=== PATIENT | female | born 1990 | race Caucasian/White ===

== ENCOUNTER 2016-03-24 18:18 | Emergency (ER) | END 2016-03-24 21:52 | disposition home or self-care (01) | DX: O23.11 Infections of bladder in pregnancy, first trimester (principal); G43.909 Migraine, unspecified, not intractable, without status migrainosus; O26.891 Other specified pregnancy related conditions, first trimester; R10.2 Pelvic and perineal pain; Z3A.13 13 weeks gestation of pregnancy | CPT/HCPCS: 36415; 76801; 81001; 84702; 85025; 86900; 86901; 96374; J2765; J7030; Z7502; Z7610 ==

== ENCOUNTER 2016-05-23 20:35 | Outpatient (CLI) | payer MEDICAID ==
[~2016-05-23] VITALS: Ht 160 cm; Wt 103.1 kg
[~2016-05-23 20:35] MED LIST: CEPH-443 PO; NO MEDS
[2016-05-23 21:08] VITALS: BP 125/63; PULSE 80; RESP 18
[2016-05-23] MEDS ORDERED: PRENAT PO (21:13)
[2016-05-23] MEDS ORDERED: ACETAMINOPHEN 500 MG TAB PO STA (21:18)
[2016-05-23 21:50] LABS: ADD UMIC YES; URINE BILIRUBIN (Dip) NEGATIVE (NEGATIVE); URINE BLOOD (Dip) NEGATIVE (NEGATIVE); URINE COLOR LT. YELLOW (YELLOW); URINE GLUCOSE (Dip) NEGATIVE (NEGATIVE); URINE KETONES (Dip) NEGATIVE (NEGATIVE); URINE LEUKOCYTE ESTERASE (Dip) 3+ (NEGATIVE); URINE NITRITE (Dip) NEGATIVE (NEGATIVE); URINE TOTAL PROTEIN (Dip) NEGATIVE (NEGATIVE); URINE UROBILINOGEN (Dip) 0.2 E.U./dL (0.1-1.0)
[2016-05-23 22:13] LABS: BACTERIA,URINE FEW; URINE RBCS 0-2 /HPF ([, 0])
[2016-05-23 22:14] LABS: SQUAMOUS EPITHELIAL CELL,UR MANY
--- NOTE | 2016-05-23 22:58 | TRIAGE ---
OB Triage Datetime Report Generated by CPN: 05/23/2016 22:58 Datetime: 05/23/2016 21:17 Monitor Mode: External Pattern: Normal: <= 5 Contractions in 10 Minutes Resting Tone [place]: Relaxed Heart Rate FHR Baseline Rate: 140 Monitor Mode: External US FHR Baseline Changes: No Baseline Change Category: Category I Comments: appropriate for gest age Datetime: 05/23/2016 21:02 Arrived By: Wheelchair Arrived From: Home Chief Complaint: hx c/s x1 w/ c/o upper rt back pain since am. Denies hx problems this pregna ncy. Movement: Present Contractions: Denies/Absent Rupture of Membranes: Denies Vaginal Bleeding: None Vaginal Discharge: Denies Recent Sexual Intercouse: Denies Abdominal Trauma: Not Applicable Patient Complaints: Back Pain Time Provider Notified: 05/23/2016 21:17 Provider Notified: Dr Sanders Initial Plan: EFM, CALL MD Vaginal Exam Membrane Status: Intact Datetime: 05/23/2016 20:49 Maternal Assessment Level of Consciousness: Fully Conscious Headache: Denies Blurred Vision: No Nausea/Vomiting: Denies RUQ Epigastric Pain: Denies Facial Edema: None Labor Evaluation Frequency: placed Monitor Mode: External Resting Tone [place]: Relaxed Monitor Mode: External US Comments: FHT 140 Pain Assessment Pain Scale: 8 Pain Presence: Constant Pain Type: Sharp; Ache Pain Location: Back
--- NOTE | 2016-05-23 23:39 | QN ---
Documentation Comment Laboresteban RODRIGUEZ/Dr Urrutia pt 26 y.o. with an IUP at 22w 2d c/o right back pain x 1 day. No fever, chills, dysuria, hematuria. No UC's. PMHx: none. PSHx: x 1. NKDA. BP 125/63 T=98.2 NST: baseline 130 bpm with accel to 150 bpm. No decels. No UC's noted. U/A negative. Exam: No CVAT b/l. The pain is just under the scapula on the right and pt flinches here when the muscle is massaged. Fundus, NT, soft. A: IUP at 22w 2d.' Left back muscular pain. No flank pain. P: Tylenol 100mg p.o. x 1 and a hot pack to the muscle made the pt feel much better and she was d/c'ed home. BROOK GABRIEL MD May 23, 2016 23:39
== END 2016-05-23 22:58 | disposition home or self-care (01) ==
LOC: L-D 20:35 → OBT 20:35
PROVIDERS: ATTEND Obstetrics & Gynecology
DX: O60.02 Preterm labor without delivery, second trimester (principal); Z3A.22 22 weeks gestation of pregnancy
CPT/HCPCS: 81001; Z7500; Z7610; 81003; G0463

== ENCOUNTER 2016-08-13 23:35 | Outpatient (CLI) | payer MEDICAID ==
[~2016-08-13] VITALS: Ht 160 cm; Wt 113.5 kg
[~2016-08-13 23:35] MED LIST changes: -CEPH-443 PO; -NO MEDS; +PRENAT PO
[2016-08-13] MEDS ORDERED: FERR134T PO (23:53)
[2016-08-14 00:09] VITALS: BP 124/71; PULSE 79; RESP 18; Ht 160 cm; Wt 113.5 kg
[2016-08-14 01:24] LABS: ADD UMIC YES; UR BILIRUBIN (Dip) NEGATIVE (NEGATIVE); UR BLOOD (Dip) NEGATIVE (NEGATIVE); UR CLARITY CLEAR (CLEAR); UR COLOR LT. YELLOW (YELLOW); UR GLUCOSE (Dip) NEGATIVE (NEGATIVE); UR KETONES (Dip) NEGATIVE (NEGATIVE); UR LEUKOCYTE ESTERASE (Dip) 1+ (NEGATIVE); UR NITRITE (Dip) NEGATIVE (NEGATIVE); UR TOTAL PROTEIN (Dip) NEGATIVE (NEGATIVE); UR UROBILINOGEN (Dip) 0.2 E.U./dL (0.1-1.0)
[2016-08-14 01:45] LABS: ADD SCAN DIFF NO
[2016-08-14 01:47] LABS: UR SQUAMOUS EPITHELIAL CELL FEW; URINE RBCS 0-2 /HPF (0)
[2016-08-14 01:47] LABS: BASOPHILS % 0.3 % (0.0-2.0); EOSINOPHILS # 0.1 10^3/ul (0.0-0.5); EOSINOPHILS % 0.5 % (0.0-7.0); HEMATOCRIT 35.4 % (37.0-47.0); HEMOGLOBIN 12.2 g/dl (12.0-16.0); LYMPHOCYTES # 1.9 10^3/ul (0.8-2.9); MEAN CORPUSCULAR HEMOGLOBIN 31.1 pg (29.0-33.0); MEAN CORPUSCULAR HGB CONC 34.5 g/dl (32.0-37.0); MEAN CORPUSCULAR VOLUME 90.3 fl (82.0-101.0); MEAN PLATELET VOLUME 10.6 fl (7.4-10.4); MONOCYTE # 0.7 10^3/ul (0.3-0.9); MONOCYTES % 5.4 % (0.0-11.0); NEUTROPHIL # 9.2 10^3/ul (1.6-7.5); NEUTROPHILS % 77.4 % (39.0-77.0); PLATELET COUNT 222 10^3/UL (140-415); RED BLOOD COUNT 3.92 10^6/ul (4.20-5.40); RED CELL DISTRIBUTION WIDTH 12.3 % (11.5-14.5); WHITE BLOOD COUNT 11.9 10^3/ul (4.8-10.8)
[2016-08-14 01:48] LABS: UR BACTERIA FEW
[2016-08-14 02:02] LABS: INR 0.89; PT RATIO 0.9
[2016-08-14 02:03] LABS: PARTIAL THROMBOPLASTIN TIME 23.3 Sec (25.0-35.0)
[2016-08-14 02:05] LABS: ALBUMIN/GLOBULIN RATIO 1.6; BILIRUBIN,INDIRECT 0.1 mg/dl (0-1.1); BILIRUBIN,TOTAL 0.1 mg/dl (0.2-1.3); CALCIUM 8.9 mg/dl (8.4-10.2); CREATININE 0.66 mg/dl (0.44-1.00); POTASSIUM 4.4 mmol/L (3.5-5.1); TOTAL PROTEIN 6.5 g/dl (6.1-8.1); URIC ACID 4.8 mg/dl (3.1-7.9)
--- NOTE | 2016-08-14 06:31 | PN ---
Triage Information Date/Time 08/13/16 2345 Weeks of Gestation 34w : 2 Para: 1 Diabetes: none Hypertention: none Additional information c/o numbness on both hands and swelling on both LE for the last 4days no other sujective symptoms such as headache or blurry vision or epigastric pain Objective EFM CAT I no u.c generalized edema pretibial pitting edema ++/++ pedal edema +++/+++ Vital Signs Date Time Temp Pulse Resp B/P Pulse Ox O2 Delivery O2 Flow Rate FiO2 08/14/16 00:09 98.0 79 18 124/71 Room Air Heart Rate: 120's Contractions: None Results/Medications Result Diagram: 08/14/1613408/14/16134 Results 24 hrs Laboratory Tests Test 08/14/16 00:32 08/14/16 01:35 Urine Color LT. YELLOW Urine Clarity CLEAR Urine pH 6.5 Urine Specific [place] <=1.005 L Urine Ketones NEGATIVE Urine Nitrite NEGATIVE Urine Bilirubin NEGATIVE Urine Urobilinogen 0.2 E.U./dL Urine Leukocyte Esterase 1+ H Urine Microscopic RBC 0-2 Urine Microscopic WBC 5-10 Urine Squamous Epithelial Cells FEW Urine Bacteria FEW Urine Hemoglobin NEGATIVE Urine Glucose NEGATIVE Urine Total Protein NEGATIVE White Blood Count 11.9 H Red Blood Count 3.92 L Hemoglobin 12.2 Hematocrit 35.4 L Mean Corpuscular Volume 90.3 Mean Corpuscular Hemoglobin 31.1 Mean Corpuscular Hemoglobin Concent 34.5 Red Cell Distribution Width 12.3 Platelet Count 222 Mean Platelet Volume 10.6 #H Neutrophils % 77.4 H Lymphocytes % 16.0 Monocytes % 5.4 Eosinophils % 0.5 Basophils % 0.3 Nucleated Red Blood Cells % 0.0 Neutrophils # 9.2 H Lymphocytes # 1.9 Monocytes # 0.7 Eosinophils # 0.1 Basophils # 0.0 Nucleated Red Blood Cells # 0.0 Prothrombin Time 12.0 L Prothrombin Time Ratio 0.9 INR International Normalized Ratio 0.89 Activated Partial Thromboplast Time 23.3 L Sodium Level 139 Potassium Level 4.4 Chloride Level 110 Carbon Dioxide Level 25 Anion Gap 8 Blood Urea Nitrogen 7 Creatinine 0.66 Glucose Level 90 Uric Acid 4.8 Calcium Level 8.9 Total Bilirubin 0.1 L Direct Bilirubin 0.00 Indirect Bilirubin 0.1 Aspartate Amino Transf (AST/SGOT) 18 Alanine Aminotransferase (ALT/SGPT) 17 Alkaline Phosphatase 97 Total Protein 6.5 Albumin 4.0 Globulin 2.50 Albumin/Globulin Ratio 1.60 Medications none Imaging Results `` Assessment/Plan IUP 34w R/O impending PIH P PIH lab modified rest d/s home with f/u with [facility] clinic RTH prn with routine instructions GILES GARCIA MD Aug 14, 2016 06:29
== END 2016-08-14 03:07 | disposition home or self-care (01) ==
LOC: OBT 23:35 → L-D 23:35 → OBT 08-14 03:07
PROVIDERS: ATTEND Obstetrics & Gynecology
DX: O26.892 Other specified pregnancy related conditions, second trimester (principal); M79.89 Other specified soft tissue disorders; R20.0 Anesthesia of skin; Z3A.34 34 weeks gestation of pregnancy
CPT/HCPCS: 80053; 81001; 84560; 85025; 85610; 85730; 87086; Z7500; G0463

== ENCOUNTER 2016-08-16 10:27 | Inpatient (IN) | payer MEDICAID ==
[~2016-08-16] VITALS: Ht 160 cm; Wt 112.9 kg
[~2016-08-16 10:27] MED LIST changes: +FERR134T PO
[2016-08-16 10:39] VITALS: BP 147/73; PULSE 86; Ht 160 cm; Wt 112.9 kg
--- NOTE | 2016-08-16 11:15 | RADRPT ---
PROCEDURE: US OB. CLINICAL INDICATION: Decreased movement TECHNIQUE: Multiple sonographic images of the pelvis were obtained. Transabdominal imaging only w as performed. The images were reviewed on a PACS workstation. COMPARISON: No prior studies are available for comparison. FINDINGS: There is a single live intrauterine gestation. Cardiac activity is present with 132 beats per minut e. position is cephalic. Measurements were made in order to determine age. The results are as follows: BPD = 8.46 cm HC = 30.70 cm AC = 30.21 cm FL = 6.37 cm. Estimated gestational age of approximately 33 weeks 6 days. The estimated date of delivery is 09/28/2016. The EFW = 2282 g, 30th %ile. The placenta is anterior. There is no evidence for an abruption or placenta previa. There are no adnexal masses. IMPRESSION: 1. Single live intrauterine gestation of approximately 33 weeks 6 days, by ultrasound criteria. 2. The estimated date of delivery is 09/28/2016. 3. The estimated weight is 2282 g, 30th %ile. RPTAT: HH .Deann Castellanos MD, Date Time Electronically viewed and signed by .Deann Castellanos MD, on 08/16/2016 11:15 .G/
--- NOTE | 2016-08-16 11:25 | RADRPT ---
PROCEDURE: OB ultrasound for biophysical profile CLINICAL INDICATION: Decreased movement TECHNIQUE: Multiple sonographic images of the pelvis were obtained. Transabdominal views of the g ravid uterus are available for review. The images were reviewed on a PACS workstation. COMPARISON: None FINDINGS: breathing movement = 2/2 tone = 2/2 motion = 2/2 ROSETTE = 2/2 ROSETTE = 7.3 cm Single live intrauterine with cardiac activity of 129 bpm. position is cephal ic. The placenta is anterior. IMPRESSION: 1. Single live intrauterine gestation. 2. Biophysical profile = 8/8. 3. ROSETTE = 7.3 cm. RPTAT: HH .Deann Castellanos MD, MD Date Time Electronically viewed and signed by .Deann Castellanos MD, on 08/16/2016 11:24 .G/
--- NOTE | 2016-08-16 11:57 | PN ---
Triage Information Date/Time August 16, 2016 at 1145 Weeks of Gestation 34 weeks and 2 days : 2 Para: 1 Additional information This 26 years old female 2 para 1 34 weeks and 2 days seen in the triage for low ROSETTE she is being worked up to rule out - induced hypertension ,requires IV hydration, to repeat repeat ultrasound for ROSETTE after IV hydration is completed Objective Vital Signs Date Time Temp Pulse Resp B/P Pulse Ox O2 Delivery O2 Flow Rate FiO2 08/16/16 10:39 98.1 86 147/73 Heart Rate: 130's Contractions: None Results/Medications Imaging Results ROSETTE 7.3 biophysical profile 10/06 NST reactive Assessment/Plan Complete workup for PIH, IV hydration SHERIDAN STOCK MD Aug 16, 2016 11:54
[2016-08-16] MEDS ORDERED: LACTATED RINGER'S 500 ML IV SCH (12:00)
[2016-08-16 12:40] LABS: ADD SCAN DIFF NO
[2016-08-16 12:45] LABS: BASOPHILS % 0.2 % (0.0-2.0); EOSINOPHILS # 0.1 10^3/ul (0.0-0.5); EOSINOPHILS % 0.6 % (0.0-7.0); HEMATOCRIT 39.8 % (37.0-47.0); HEMOGLOBIN 13.5 g/dl (12.0-16.0); LYMPHOCYTES # 1.7 10^3/ul (0.8-2.9); LYMPHOCYTES % 14.8 % (15.0-51.0); MEAN CORPUSCULAR HEMOGLOBIN 30.8 pg (29.0-33.0); MEAN CORPUSCULAR HGB CONC 33.9 g/dl (32.0-37.0); MEAN CORPUSCULAR VOLUME 90.7 fl (82.0-101.0); MEAN PLATELET VOLUME 10.5 fl (7.4-10.4); MONOCYTE # 0.6 10^3/ul (0.3-0.9); MONOCYTES % 5.3 % (0.0-11.0); NEUTROPHIL # 8.9 10^3/ul (1.6-7.5); NEUTROPHILS % 78.7 % (39.0-77.0); PLATELET COUNT 222 10^3/UL (140-415); RED BLOOD COUNT 4.39 10^6/ul (4.20-5.40); RED CELL DISTRIBUTION WIDTH 12.6 % (11.5-14.5); WHITE BLOOD COUNT 11.3 10^3/ul (4.8-10.8)
[2016-08-16 13:00] LABS: INR 0.86; PARTIAL THROMBOPLASTIN TIME 25.8 Sec (25.0-35.0); PROTIME 11.7 Sec (12.2-14.2); PT RATIO 0.9
[2016-08-16] MEDS ORDERED: LACTATED RINGER'S 1,000 ML IV SCH (13:00)
[2016-08-16 13:02] LABS: ADD UMIC YES; UR BILIRUBIN (Dip) NEGATIVE (NEGATIVE); UR BLOOD (Dip) TRACE (NEGATIVE); UR CLARITY CLEAR (CLEAR); UR COLOR LT. YELLOW (YELLOW); UR GLUCOSE (Dip) NEGATIVE (NEGATIVE); UR KETONES (Dip) NEGATIVE (NEGATIVE); UR LEUKOCYTE ESTERASE (Dip) 3+ (NEGATIVE); UR NITRITE (Dip) NEGATIVE (NEGATIVE); UR TOTAL PROTEIN (Dip) NEGATIVE (NEGATIVE); UR UROBILINOGEN (Dip) 0.2 E.U./dL (0.1-1.0)
[2016-08-16 13:04] LABS: ALBUMIN 4.2 g/dl (3.3-4.9); ALBUMIN/GLOBULIN RATIO 1.44; BILIRUBIN,INDIRECT 0.3 mg/dl (0-1.1); BILIRUBIN,TOTAL 0.3 mg/dl (0.2-1.3); CALCIUM 8.9 mg/dl (8.4-10.2); CREATININE 0.62 mg/dl (0.44-1.00); POTASSIUM 4.1 mmol/L (3.5-5.1); TOTAL PROTEIN 7.1 g/dl (6.1-8.1); URIC ACID 5.7 mg/dl (3.1-7.9)
[2016-08-16 13:12] LABS: UR BACTERIA FEW; URINE RBCS 0-2 /HPF (0)
--- NOTE | 2016-08-16 15:14 | RADRPT ---
PROCEDURE: US evaluation of amniotic fluid volume. CLINICAL INDICATION: History of oligohydramnios. TECHNIQUE: Multiple sonographic images of the gravid uterus were obtained utilizing finn-scale paulina ging. Sagittal and transverse images were obtained. The images were reviewed on a PACS workstation . ROSETTE was measured. COMPARISON: No prior studies are available for comparison. FINDINGS: There is a single live intrauterine . heart rate is 132 beats per minute. Position is cephalic. Placenta is anterior grade 1 with no abruption or previa. ROSETTE is 8.7 cm. (Normal = 5-20 cm.) IMPRESSION: 1. ROSETTE is 8.7 cm. RPTAT: QQ .Pramod Kowalski MD, Date Time Electronically viewed and signed by .Pramod Kowalski MD, on 08/16/2016 15:14 .R/
--- NOTE | 2016-08-16 16:56 | TRIAGE ---
OB Triage Datetime Report Generated by CPN: 08/16/2016 16:55 Datetime: 08/16/2016 16:25 Stage of : Antepartum Datetime: 08/16/2016 15:48 Stage of : OB Triage Datetime: 08/16/2016 15:45 Heart Rate FHR Baseline Rate: 150 Monitor Mode: External US Variability: Moderate 6-25 bpm Accelerations: None Decelerations: None Category: Category II Pain Assessment Pain Scale: 0 Pain Presence: None/Denies Pain Type: N/A Pain Goal: 3 Pain Relief Measures: Comfort Measures Datetime: 08/16/2016 14:38 Labor Evaluation Frequency: 0 Monitor Mode: External Pattern: Normal: <= 5 Contractions in 10 Minutes Resting Tone [place]: Relaxed Heart Rate FHR Baseline Rate: 135 Monitor Mode: External US Variability: Moderate 6-25 bpm Accelerations: 10X10 Decelerations: None Category: Category I Pain Assessment Pain Scale: 0 Pain Presence: None/Denies Pain Type: N/A Pain Goal: 3 Pain Relief Measures: Comfort Measures Datetime: 08/16/2016 13:35 Labor Evaluation Frequency: 14-15 Monitor Mode: External Duration (sec)2399: 50-70 Resting Tone [place]: Relaxed Heart Rate FHR Baseline Rate: 125 Monitor Mode: External US Variability: Moderate 6-25 bpm Decelerations: None Category: Category II Pain Assessment Pain Scale: 1 Pain Presence: Intermittent Pain Type: Cramping Pain Goal: 3 Pain Relief Measures: Comfort Measures Datetime: 08/16/2016 12:28 Labor Evaluation Frequency: OCCAS Monitor Mode: External Duration (sec)2399: 60-70 Quality: Mild Pattern: Normal: <= 5 Contractions in 10 Minutes Resting Tone [place]: Relaxed Heart Rate FHR Baseline Rate: 135 Monitor Mode: External US Variability: Moderate 6-25 bpm Accelerations: 10X10 Decelerations: None Category: Category I Pain Assessment Pain Scale: 0 Pain Presence: None/Denies Pain Type: N/A Pain Goal: 3 Pain Relief Measures: Comfort Measures Datetime: 08/16/2016 11:39 Labor Evaluation Frequency: OCCAS Monitor Mode: External Duration (sec)2399: 50-60 Quality: Mild Resting Tone [place]: Relaxed Heart Rate FHR Baseline Rate: 135 Monitor Mode: External US Variability: Moderate 6-25 bpm Accelerations: 10X10 Decelerations: None Category: Category I Pain Assessment Pain Scale: 0 Pain Presence: None/Denies Pain Type: N/A Pain Goal: 3 Pain Relief Measures: Comfort Measures Datetime: 08/16/2016 10:41 Stage of : OB Triage Datetime: 08/16/2016 10:35 Stage of : OB Triage Assessment Type: Triage Maternal Assessment Level of Consciousness: Fully Conscious DTR's/Clonus: DTRs 2+; No Clonus Headache: Denies Blurred Vision: No Respiratory Effort: Unlabored; Regular Rhythm; Equal Expansion Breath Sounds, Left: Clear and Equal Breath Sounds, Right: Clear and Equal Nausea/Vomiting: Denies RUQ Epigastric Pain: Denies Facial Edema: None Temperature Route: Axillary Fall Risk Assessment History of Falling: (0) No Secondary Diagnosis: (0) No Ambulatory Aid: (0) Bedrest/Nurse Assist IV Therapy: (0) No Gait: (0) Normal/Bedrest/Immobile Mental Status: (0) Oriented to Own Ability Fall Score: 0 Fall Risk Score Definition: No Risk: No action required Labor Evaluation Frequency: 0 Monitor Mode: External Resting Tone [place]: Relaxed Heart Rate FHR Baseline Rate: 135 Monitor Mode: External US Variability: Moderate 6-25 bpm Accelerations: 10X10 Decelerations: None Category: Category I Pain Assessment Pain Scale: 0 Pain Presence: None/Denies Pain Type: N/A Pain Goal: 3 Datetime: 08/16/2016 10:32 Time of Arrival: 08/16/2016 10:25 EGA: 34.2 Arrived By: Ambulatory Chief Complaint: DFM X1 DAY, DENIES BLEEDING OR LEAKING OF FLUID, STATES RT SIDED PAIN YESTERDAY MORNING. Movement: Decreased Contractions: Denies/Absent Rupture of Membranes: Denies Vaginal Discharge: Denies Recent Sexual Intercouse: Denies Abdominal Trauma: Not Applicable Time Provider Notified: 08/16/2016 10:45 Provider Notified: [facility] Initial Plan: MONITOR, BPP/ROSETTE, EFW, IV HYDRATION, PIH PANEL Datetime: 08/14/2016 03:00 Stage of : OB Triage Labor Evaluation Frequency: None Monitor Mode: External Heart Rate FHR Baseline Rate: 130 Monitor Mode: External US FHR Baseline Changes: No Baseline Change Variability: Moderate 6-25 bpm Accelerations: 15X15 Decelerations: None Category: Category I Datetime: 08/14/2016 02:47 Stage of : OB Triage Datetime: 08/14/2016 02:40 Monitor Mode: External US Datetime: 08/14/2016 02:39 Stage of : OB Triage Datetime: 08/14/2016 02:00 Stage of : OB Triage Labor Evaluation Frequency: None Monitor Mode: External Heart Rate FHR Baseline Rate: 135 Monitor Mode: External US FHR Baseline Changes: No Baseline Change Variability: Moderate 6-25 bpm Accelerations: 15X15 Decelerations: Variable Category: Category II Datetime: 08/14/2016 01:57 Monitor Mode: External Monitor Mode: External US Datetime: 08/14/2016 01:00 Stage of : OB Triage Labor Evaluation Frequency: None Monitor Mode: External Heart Rate FHR Baseline Rate: 135 Monitor Mode: External US FHR Baseline Changes: No Baseline Change Variability: Moderate 6-25 bpm Accelerations: 15X15 Decelerations: Variable Category: Category II Datetime: 08/14/2016 00:30 Stage of : OB Triage Datetime: 08/14/2016 00:04 Assessment Type: Triage Maternal Assessment Level of Consciousness: Fully Conscious DTR's/Clonus: DTRs 2+; No Clonus Headache: Denies Blurred Vision: No Respiratory Effort: Unlabored; Regular Rhythm; Equal Expansion Breath Sounds, Left: Clear and Equal Breath Sounds, Right: Clear and Equal Nausea/Vomiting: Denies RUQ Epigastric Pain: Denies Lower Extremities Edema: Bilateral Lower Extremities Degree: 2+ Upper Extremities Edema: Bilateral Upper Extremities Degree: 1+ Facial Edema: None Fall Risk Assessment History of Falling: (0) No Secondary Diagnosis: (0) No Ambulatory Aid: (0) Bedrest/Nurse Assist IV Therapy: (0) No Gait: (0) Normal/Bedrest/Immobile Mental Status: (0) Oriented to Own Ability Fall Score: 0 Fall Risk Score Definition: No Risk: No action required Datetime: 08/14/2016 00:01 Monitor Mode: External Contraction Comments: Applied Monitor Mode: External US Comments: Applied Datetime: 08/13/2016 23:43 Time of Arrival: 08/13/2016 23:29 EGA: 33.6 Arrived By: Wheelchair Arrived From: Home Chief Complaint: Swelling and numbness in hands and legs. (Annotations: Data stored by CPN on beha lf of user) Movement: Present Contractions: Denies/Absent Rupture of Membranes: Denies Vaginal Bleeding: None Vaginal Discharge: Denies Recent Sexual Intercouse: Denies Abdominal Trauma: Not Applicable Patient Complaints: Other Time Provider Notified: 08/14/2016 00:30 Provider Notified: Dr Culver Initial Plan: EFM X2, PIH labs Datetime: 05/23/2016 22:47 Stage of : OB Triage Monitor Mode: External Pattern: Normal: <= 5 Contractions in 10 Minutes Resting Tone [place]: Relaxed Heart Rate FHR Baseline Rate: 140 Monitor Mode: External US Pain Assessment Pain Scale: 3 Pain Presence: Constant Pain Type: Dull Pain Location: Back Datetime: 05/23/2016 22:07 Monitor Mode: External Pattern: Normal: <= 5 Contractions in 10 Minutes Resting Tone [place]: Relaxed Heart Rate FHR Baseline Rate: 135 Monitor Mode: External US Decelerations: None Category: Category I
[2016-08-16] MEDS ORDERED: ACETAMINOPHEN 325 MG TAB PO PRN (18:00)
[2016-08-17] MEDS: MULTIVIT/MIN/FOLATE/IRON/PREN TAB PO SCH (08:49)
[2016-08-17 16:38] LABS: SCRET 0.62 mg/dl (0.44-1.00)
--- NOTE | 2016-08-18 03:17 | PN ---
Date/Time of Note Date/Time of Note DATE: 08/18/16 TIME: 03:10 OB Subjective Subjective Subjective 26 Year-old with SIUP at 34 3/7 weeks admitted for close follow up and 24 h UP. Initially she presented to triage for decrease F, noted to have elevated BP and ROSETTE of 7.3. Currently she states good movement. She denies nausea, vomiting, shortness of breath, chest pain, headache, visual changes, vaginal bleeding or LOF. OB Objective Objective Objective General: Patient appears well, alert and oriented, NAD, appropriate mood and affect ABD: gravid, soft, non-tender. Back: No CVA tenderness (B/L) LE: No clubbing, cyanosis, edema, thigh or calf tenderness bilaterally FHT: 135 bpm , moderate variability with acceleration, no deceleration-category I Contractions: None OB Assessment/Plan Other plan: 26 Year-old with SIUP at 34 3/7 weeks with preeclampsia. CBC, CMP: wnl. 24 hUP: 385. 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 Today's ROSETTE is 8.7 cm. She will be seen by edgar tomorrow. - FHR: No sign of metabolic acidosis- Category I - Continuous EFM, toco - Contractions: None. - Symptoms and sign of labor, preeclampsia, kick count discussed with patient, she voiced understanding. All of her questions answered. - Follow-up with her primary physician BRIGETTE CAAL Aug 18, 2016 03:17
[2016-08-18] MEDS: MULTIVIT/MIN/FOLATE/IRON/PREN TAB PO SCH (08:37)
--- NOTE | 2016-08-18 11:04 | PERINOTE ---
Date/Time of Note Date/Time of Note DATE: 08/18/16 TIME: 10:56 Assessment/Recommendations Other Assessments IUP 34W6D Morbid obesity Hypertension, likely preeclampsia given normal BPs in clinic, without severe features Recommendations: I feel that this patient could be discharged home on modified bedrest with appointment for NST/ROSETTE with maternal BP check twice weekly. If the BP remains in the mildly elevated range, would consider delivery at 37 weeks GA. OB Subjective Free Text/Dictaton Patient admitted for decreased movement, found to have some elevated BPs ( up to 156/84 documented). 24 hour urine protein is also elevated mildly. Patient denies symptoms, now feels active movement. 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 Para: 1 : 2 LMP (Females 10-50): Family History Significant Family History: diabetes OB Admission Exam Physical Exam Vitals: Vital Signs Date Time Temp Pulse Resp B/P Pulse Ox O2 Delivery O2 Flow Rate FiO2 08/16/16 10:39 98.1 86 147/73 08/18/16 112/60 Heart: Rhythm Normal Lungs: Clear Abdomen: WNL Heart Rate: 130's Accelerations: Accelerations Present Decelerations: No Decelerations Varibility: Moderate Contractions on Admission: None Last 72 hours Lab Results CBC & BMP 08/16/16 12:10 Liver Function Test 08/16/16 12:10 Alanine Aminotransferase (ALT/SGPT) 24 Albumin 4.2 Alkaline Phosphatase 110 Aspartate Amino Transf (AST/SGOT) 23 Direct Bilirubin 0.00 Total Protein 7.1 Ultrasound Results ROSETTE 8.7 cm on 08/16/16 Copies To: CC: SHERIDAN STOCK MD, MARIE H MD Aug 18, 2016 11:04
--- NOTE | 2016-08-18 11:29 | RADRPT ---
PROCEDURE: OB ultrasound for biophysical profile CLINICAL INDICATION: Decreased movement. TECHNIQUE: Multiple sonographic images of the pelvis were obtained. Transabdominal view of the gr avid uterus are available for review. The images were reviewed on a PACS workstation. COMPARISON: 08/16/2016 FINDINGS: breathing movement = 2/2 tone = 2/2 motion = 2/2 Quantitative amniotic fluid volume = 2/2 ROSETTE = 5.7 cm Single live intrauterine with cardiac activity at 104 beats per minute. There is a anterior placenta without previa. IMPRESSION: 1. Single living intrauterine gestation in cephalic position. 2. Biophysical profile = 8/8. 3. ROSETTE = 5.7 cm. RPTAT: [facility] Physician Chrissy Date Time Electronically viewed and signed by Physician Chrissy on 08/18/2016 11:29 /
--- NOTE | 2016-08-18 13:15 | QN ---
Documentation Comment at 34 3/7 weeks with preeclampsia and decreased movements NST reassuring [place] No CTXs Pelvic Deffered --->ROSETTE 5.7 ,case discussed with and patient will not be discharged today --->close Observation --->Orders as per PMD and peinatalogists MAYCOL RICARDO M.D. Aug 18, 2016 13:15
[2016-08-18] MEDS: LACTATED RINGER'S 1,000 ML IV SCH (13:48)
[2016-08-19] MEDS: LACTATED RINGER'S 1,000 ML IV SCH ×3 (01:34→23:50)
--- NOTE | 2016-08-19 08:54 | RADRPT ---
PROCEDURE: OB ultrasound for biophysical profile CLINICAL INDICATION: Biophysical profile. . Low amniotic fluid index TECHNIQUE: Multiple sonographic images of the pelvis were obtained. Transabdominal views are obta ined. COMPARISON: 08/18/2016 FINDINGS: Single intrauterine gestation. Presentation: Cephalic. Placenta: Anterior. No evidence of placental abruption. No evidence of placenta previa. breathing movement = 2/2 tone = 2/2 motion = 2/2 ROSETTE = 2/2 ROSETTE = 7.7 cm; previously 5.7 heart rate: 158 beats per minute IMPRESSION: Single intrauterine gestation. Biophysical profile 10/06 RPTAT: AADD .Eyad Dye MD, MD Date Time Electronically viewed and signed by .Eyad Dye MD, on 08/19/2016 08:53 .B/
[2016-08-19] MEDS: MULTIVIT/MIN/FOLATE/IRON/PREN TAB PO SCH (09:42)
[2016-08-19] MEDS ORDERED: CEFAZOLIN 2 GM/50 ML (PMX) 50 ML IVPB SCH (14:00)
[2016-08-19] MEDS ORDERED: BETAMET NA PHOS/AC(6 MG/ML) 5ML INJ IM ONE (15:00)
[2016-08-19] MEDS ORDERED: BETAMET NA PHOS/AC(6 MG/ML) 5ML INJ IM SCH ×2 (15:30→21:00)
--- NOTE | 2016-08-19 17:12 | PN ---
Date/Time of Note Date/Time of Note DATE: 08/19/16 TIME: 16:54 OB Subjective Subjective Subjective 26-year-old with IUP at 34 weeks and 5 days presented to triage with complaint of decreased movement and was noted to have elevated blood pressure. She was admitted due to rule out PIH. Patient today denies any leaking of fluid, vaginal bleeding or decreased movement. She denies any headache, blurred vision or epigastric pain. OB Objective Objective Objective Abdomen: Soft, gravid, nontender, no rebound tenderness, Fundal height consistent with gestational age NST: There is occasional decelerations noted on the monitor. Good variability noted BPP: 8 OB Assessment/Plan Other Assessment: IUP at 34 weeks and 5 days Admitted for decreased movement Was noted to have elevated blood pressure. Currently no evidence of preeclampsia There is occasional variable prolonged deceleration and heart rate which returned to the baseline, lasting between 30 seconds to 3 minutes. BPP: 10/06 . Patient had initially oligohydramnios that resolved with IV hydration. The latest ROSETTE reported 8 Due to concern for occasional variable deceleration heart rate tracing patient will be continued to be observed in-house Discussed with the patient possibility of section in case of nonreassuring heart tracing. She will kept n.p.o. Discussed with patient regarding starting steroid. I would also discuss the case with Dr. Jordan perinatologist to review the tracing for recommendation regarding timing of delivery CBC type and screen will be ordered We will continue to monitor closely Perinatology official consultation NICOLE TOVAR MD Aug 19, 2016 17:09
--- NOTE | 2016-08-19 18:39 | QN ---
Documentation Comment Patient is resting in bed not complaining of headache blurry vision or epigastric her blood pressure and normal and her lab workup for PIH are all negative and no protein in the urine however when I reviewed heart tracing they are infrequent variable deceleration at times down to 70s lasting 2 -3 but with good recovery to baseline and good axillary patient seen by the perinatologist recommended to be discharged however due to the low ROSETTE and variable deceleration we decided to continue observation. SHERIDAN STOCK MD Aug 19, 2016 18:39
--- NOTE | 2016-08-19 20:09 | RADRPT ---
PROCEDURE: Obstetrical ultrasound greater than 14 weeks CLINICAL INDICATION: labor TECHNIQUE: Real time sonographic imaging of the gravid uterus is performed transabdominally and mu ltiple static finn scale and Doppler images are submitted for review as are measurements. The image s are reviewed on the PACS. COMPARISON: Biophysical profile 08/19/2016. Pelvic ultrasound 08/16/2016 FINDINGS: There is a single living intrauterine gestation in cephalic presentation. The heart beat is estimated at 146 bpm. The measurements are as follows: BPD:8.11 cm HC:29.77 cm AC:30.73 cm FL:6.68 cm Estimated gestational age is 33 weeks 5 days. The estimated date of delivery is 10/02/2016. The estimated weight is 2369 grams. Placenta is anterior and grade 1. There is no evidence of placenta previa or abruption. The amniotic fluid index is low normal estimated at 7.7 cm. RPTAT:HJJR IMPRESSION: 1. Single viable intrauterine gestation estimated at 33 weeks 5 days with the estimated date of deli very 10/02/2016. 2. Estimated weight 2369 g. Physician Opal Date Time Electronically viewed and signed by Physician Opal on 08/19/2016 20:09 /
--- NOTE | 2016-08-19 22:35 | PERINOTE ---
Date/Time of Note Date/Time of Note DATE: 08/19/16 TIME: 22:31 OB Subjective Free Text/Dictaton Asked to review heart tracing: Currently baseline of 130bpm. Qualifying accelerations are seen, with moderate variability. There is one small variable deceleration, clinically insignificant. No uterine contractions are recorded Impression: Category 1 pattern, reassuring FHR record Current Medications Current Medications Prenat Multivit/ Mcmullin/Iron/Folic Ac ( S) 1 tab DAILY PO Last administered on 08/19/16 09:42; Admin Dose 1 TAB; Start 08/17/16 at 09:00 Acetaminophen 650 mg 650 mg Q6H PRN PO PAIN AND OR ELEVATED TEMP Last administered on 08/18/16 22:03; Admin Dose 650 MG; Start 08/16/16 at 18:00 Lactated Ringer's (Lr) 1,000 ml @ 125 mls/hr Q8H IV Last administered on 14:30; Admin Dose 75 MLS/HR; Start 08/18/16 at 13:30 OB Admission Exam Physical Exam Vitals: Vital Signs Date Time Temp Pulse Resp B/P Pulse Ox O2 Delivery O2 Flow Rate FiO2 08/16/16 10:39 98.1 86 147/73 Copies To: CC: NICOLE TOVAR MD; AMY KIM MD, MARIE H MD Aug 19, 2016 22:35
[2016-08-20] MEDS: LACTATED RINGER'S 1,000 ML IV SCH ×3 (07:49→23:55)
--- NOTE | 2016-08-20 08:54 | RADRPT ---
PROCEDURE: OB ultrasound for Biophysical Profile. CLINICAL INDICATION: Low ROSETTE. TECHNIQUE: Multiple sonographic images of the gravid uterus were obtained. COMPARISON: 08/19/2016. FINDINGS: There is a single live intrauterine in cephalic presentation with heart motion of 14 4 beats per minute. ROSETTE is 6.89 cm, previously 7.86 cm. There is a single pocket of fluid measurin g greater than 2.0 x 2.0 cm. Biophysical profile is as follows: Movement: 2 Tone:2 Breathin Fluid:2 IMPRESSION: Biophysical profile 10/06. RPTAT: HLST .Jocelyn Gerard MD, MD Date Time Electronically viewed and signed by .Jocelyn Gerard MD, MD on 08/20/2016 08:53 .T/
[2016-08-20] MEDS: MULTIVIT/MIN/FOLATE/IRON/PREN TAB PO SCH (09:03)
--- NOTE | 2016-08-20 13:39 | QN ---
Documentation Comment Vital signs are stable resting in bed no complaint of headache blurry vision epigastric pain, seen by the perinatology not concerned regarding occasional deceleration which return,s to the baseline will continue close observation and monitoring heart tracing SHERIDAN STOCK MD Aug 20, 2016 13:39
[2016-08-20 15:25] LABS: ADD UMIC NO; UR ASCORBIC ACID NEGATIVE (NEGATIVE); UR BILIRUBIN (Dip) NEGATIVE (NEGATIVE); UR BLOOD (Dip) NEGATIVE (NEGATIVE); UR CLARITY CLEAR (CLEAR); UR COLOR STRAW (YELLOW); UR GLUCOSE (Dip) NEGATIVE (NEGATIVE); UR KETONES (Dip) NEGATIVE (NEGATIVE); UR LEUKOCYTE ESTERASE (Dip) NEGATIVE Leu/ul (NEGATIVE); UR NITRITE (Dip) NEGATIVE (NEGATIVE); UR SPECIFIC GRAVITY (Dip) 1.004 (1.003-1.030); UR TOTAL PROTEIN (Dip) NEGATIVE (NEGATIVE); UR UROBILINOGEN (Dip) NEGATIVE (NEGATIVE)
[2016-08-21] MEDS: LACTATED RINGER'S 1,000 ML IV SCH ×4 (08:14→22:00)
[2016-08-21] MEDS: MULTIVIT/MIN/FOLATE/IRON/PREN TAB PO SCH (08:46)
--- NOTE | 2016-08-21 09:42 | RADRPT ---
PROCEDURE: US OB limited. CLINICAL INDICATION: Low ROSETTE. TECHNIQUE: Multiple transabdominal sonographic images of the pelvis were obtained. COMPARISON: 08/20/2016. FINDINGS: There is a single live intrauterine in cephalic presentation with heart motion of 13 1 beats per minute. The placenta is anteriorly located and without evidence of previa or abruption. ROSETTE is 5.9 cm, previously 6.9 cm. IMPRESSION: Low ROSETTE. RPTAT: HLST .Jocelyn Gerard MD, Date Time Electronically viewed and signed by .Jocelyn Gerard MD, on 08/21/2016 09:41 .T/
--- NOTE | 2016-08-21 17:15 | QN ---
Documentation Comment 0Vital signs are stable there has been no heart deceleration as of yesterday, all her lab workup to rule out PIH are within normal on the ultrasound report ROSETTE is 5.6 which is down from 6.5 of yesterday IV hydration 500 cc bolus and 200 cc every hour total of 1000 ordered with repeat rosette in the morning will continue close monitoring. SHERIDAN STOCK MD Aug 21, 2016 17:15
[2016-08-21] MEDS ORDERED: LACTATED RINGER'S 500 ML IV ONE (17:30)
[2016-08-22] MEDS: LACTATED RINGER'S 1,000 ML IV SCH ×4 (02:42→18:17)
[2016-08-22] MEDS ORDERED: AL HYDROX/MG HYDROX/SIMETH 30 ML CUP PO PRN (09:00)
[2016-08-22] MEDS: MULTIVIT/MIN/FOLATE/IRON/PREN TAB PO SCH (09:08)
--- NOTE | 2016-08-22 10:30 | RADRPT ---
PROCEDURE: US biophysical profile. CLINICAL INDICATION: Low ROSETTE TECHNIQUE: Multiple sonographic images of the uterus were obtained. The images were revi ewed on a PACS workstation. COMPARISON: Pelvic ultrasound August 21, 2016 FINDINGS: There is a single live intrauterine gestation. heart rate is 146 beats per minute. The position is cephalic. The placenta is anterior grade II. The ROSETTE is 12.3 cm. (Normal = 5-20 cm.) IMPRESSION: 1. The ROSETTE = 12.3 cm RPTAT: UU .Brad Martins MD, Date Time Electronically viewed and signed by .Brad Martins MD, on 08/22/2016 10:30 .K/
--- NOTE | 2016-08-22 10:56 | QN ---
Documentation Comment Afebrile resting in bed heart category 1 report of amniotic fluid index today after adequate hydration is 12.3we will repeat ROSETTE in a.m. if still within this range plan of possible a.m. discharge discussed with the patient SHERIDAN STOCK MD Aug 22, 2016 10:56
--- NOTE | 2016-08-22 16:10 | PERINOTE ---
Date/Time of Note Date/Time of Note DATE: 08/22/16 TIME: 16:05 Assessment/Recommendations Other Assessments Intrauterine at 35 weeks and 1 day of gestation Previous heart rate decelerations now apparently resolved. The patient has occasional small variable decelerations of no prognostic significance biophysical profile performed most recently on 08/20 was 8 out of 8 weight estimation on 08/16 was 2282 g which is 30th percentile for gestational age. Amniotic fluid index performed this morning is in the normal range. Recommendations: I feel that this patient could be discharged home. If desired we could follow her in the perinatology center with twice weekly testing. OB Subjective Free Text/Dictaton Patient was originally admitted for a complaint of decreased movement she' s remained in the hospital due to concerns for a low amniotic fluid index and occasional heart rate decelerations HD# 7 IUP @ 35W1D Current Medications Current Medications Prenat Multivit/ Mclean/Iron/Folic Ac ( S) 1 tab DAILY PO Last administered on 08/22/16 09:08; Admin Dose 1 TAB; Start 08/17/16 at 09:00 Acetaminophen 650 mg 650 mg Q6H PRN PO PAIN AND OR ELEVATED TEMP Last administered on 08/18/16 22:03; Admin Dose 650 MG; Start 08/16/16 at 18:00 Lactated Ringer's (Lr) 1,000 ml @ 125 mls/hr Q8H IV Last administered on 11:07; Admin Dose 125 MLS/HR; Start 08/18/16 at 13:30 Al Hydrox/Mg Hydrox/Simethicone (Mag-Al Plus) 30 ml Q4H PRN PO GASTROINTESTINAL UPSET; Start 08/22/16 at 09:00 OB Admission Exam Physical Exam Heart Rate: 120's Accelerations: Accelerations Present Decelerations: Variable Decelerations (Small) Varibility: Moderate Contractions on Admission: None Ultrasound Results ROSETTE 12.3 cm Copies To: CC: SHERIDAN STOCK MD, MARIE H MD Aug 22, 2016 16:10
[2016-08-23] MEDS: LACTATED RINGER'S 1,000 ML IV SCH ×2 (02:30→10:40)
[2016-08-23] MEDS: MULTIVIT/MIN/FOLATE/IRON/PREN TAB PO SCH (09:01)
--- NOTE | 2016-08-23 10:21 | RADRPT ---
PROCEDURE: US evaluation of amniotic fluid volume. CLINICAL INDICATION: Low amniotic fluid volume. TECHNIQUE: Multiple sonographic images of the gravid uterus were obtained utilizing finn-scale paulina ging. Sagittal and transverse images were obtained. The images were reviewed on a PACS workstation . ROSETTE was measured. COMPARISON: No prior studies are available for comparison. FINDINGS: There is a single live intrauterine . heart rate is 128 beats per minute. Position is cephalic. Placenta is anterior grade 1 with no abruption or previa. ROSETTE is 9.7 cm. (Normal = 5-20 cm.) IMPRESSION: 1. ROSETTE is 9.7 cm. RPTAT: QQ .Pramod Kowalski MD, MD Date Time Electronically viewed and signed by .Pramod Kowalski MD, on 08/23/2016 10:20 .R/
--- NOTE | 2016-08-23 10:51 | PD.PPDC ---
EYE SURGEON Discharge Instruction Condition Patient Condition: Stable Diet Diet: Resume Regular Diet Activity/Restrictions Activity: Normal Activity Bedrest May be up to bathroom May be up for meals May Shower Follow-up Follow-up with Physician: 2, Day/Days Provider Information: Repeat ROSETTE BPP in 2 days at triage unit of [facility] SHERIDAN STOCK MD Aug 23, 2016 10:51
--- NOTE | 2016-08-23 11:10 | DS ---
Date/Time of Note Date/Time of Note DATE: 08/23/16 TIME: 11:00 Discharge Summary Admission/Discharge Info Admit Date/Time Aug 16, 2016 at 16:15 Discharge Date/Time August 23, 2016 at 1130 Discharge Diagnosis 35 weeks 2 days admitted to the hospital for low ROSETTE has been under close observation and IV hydration today's amniotic fluid was 9.7 patient will be 1000 cc of Ringer's lactate ROSETTE will be repeated if the fluid is no less than 9 she may go home on bedrest increase fluid intake return to triage on the to repeat ROSETTE, biophysical profile Patient Condition: Good Procedures Observation IV hydration Hx of Present Illness 35 weeks 2 days , with ROSETTE on admission 5.6 today is 9.7,bolus of 1000 cc of Ringer's lactate, ROSETTE will be repeated if no less than 9 may go home today with adequate oral hydration return to triage on August 25 2 repeat ROSETTE Hospital Course Satisfactory response to treatment Home Meds Reported Medications Ferrous Sulfate (Iron) 134 Mg Tablet, 134 MG PO DAILY, TAB 08/13/16 Multivit/Min/Fol Ac/Iron/Pren* ( S*) 1 Tab Tab, 1 TAB PO DAILY, TAB 05/23/16 Follow-up Plan Return to triage on August 25, 2016 repeat NST ROSETTE Primary Care Provider Care Physician No Primary Time spent on discharge: < 30 minutes SHERIDAN STOCK MD Aug 23, 2016 11:10
== END 2016-08-23 16:19 | disposition home or self-care (01) | DRG 781 ==
LOC: OBT 10:27 → L-D 10:28 → OBT 16:15 → OBG 16:15
PROVIDERS: ADMIT Obstetrics & Gynecology; ATTEND Obstetrics & Gynecology
PROC: 4A1HXCZ Monitoring of Products of Conception, Cardiac Rate, External Approach (ICD-10-PCS; principal; 2016-08-16)
DX: O36.8130 Decreased fetal movements, third trimester, not applicable or unspecified (principal); O14.93 Unspecified pre-eclampsia, third trimester; Z68.41 Body mass index [BMI] 40.0-44.9, adult; O41.03X0 Oligohydramnios, third trimester, not applicable or unspecified; O99.213 Obesity complicating pregnancy, third trimester; E66.01 Morbid (severe) obesity due to excess calories; Z3A.34 34 weeks gestation of pregnancy
CPT/HCPCS: 36415; 76815; 76816; 76818; 80053; 81001; 81003; 82575; 84112; 84156; 84560; 85025; 85384; 85610; 85730; 86850; 86900; 86901; 87086; 96360; 96361; G0463; J0690; J0702; J7120

== ENCOUNTER 2016-08-25 07:54 | Outpatient (CLI) | payer MEDICAID ==
[~2016-08-25] VITALS: Ht 160 cm; Wt 113.0 kg
--- NOTE | 2016-08-25 09:38 | RADRPT ---
PROCEDURE: US biophysical profile. CLINICAL INDICATION: Low amniotic fluid volume. TECHNIQUE: Multiple sonographic images of the uterus were obtained. The images were revi ewed on a PACS workstation. COMPARISON: 08/20/2016. FINDINGS: There is a single live intrauterine gestation. heart rate is 134 beats per minute. The position is cephalic. The placenta is anterior grade 1 with no abruption or previa. The ROSETTE is 10.1 cm. (Normal = 5-20 cm.) Breathing Movement: 2 Gross Body Movement: 2 Tone: 2 Qualitative Amniotic Fluid Volume: 2 TOTAL: 8 IMPRESSION: 1. The biophysical score is 8/8. RPTAT: QQ .Pramod Kowalski MD, MD Date Time Electronically viewed and signed by .Pramod Kowalski MD, on 08/25/2016 09:38 .R/
[2016-08-25 10:06] VITALS: Ht 160 cm; Wt 113.0 kg
[2016-08-25 10:07] VITALS: BP 125/63; PULSE 100; RESP 20
--- NOTE | 2016-08-25 10:24 | PN ---
Triage Information Date/Time 26 years old 2 para 1,35 weeks and 4 days , she is being followed for the low ROSETTE today her ROSETTE is 10.1 and biophysical 10/10 she was discharged home with recommendation of adequate hydration return to triage in 2 days to repeat ROSETTE and nst Weeks of Gestation 35 weeks for the : 2 Para: 1 Diabetes: none Hypertention: none Additional information Monitoring for low ROSETTE Objective Vital Signs Date Time Temp Pulse Resp B/P Pulse Ox O2 Delivery O2 Flow Rate FiO2 08/25/16 10:07 98.2 100 20 125/63 98 Room Air Heart Rate: 130's Contractions: None SHERIDAN STOCK MD Aug 25, 2016 10:24
== END 2016-08-25 10:16 | disposition home or self-care (01) ==
LOC: OBT 07:54 → L-D 07:54 → OBT 10:16
PROVIDERS: ATTEND Obstetrics & Gynecology
DX: O41.8X30 Other specified disorders of amniotic fluid and membranes, third trimester, not applicable or unspecified (principal); Z3A.35 35 weeks gestation of pregnancy
CPT/HCPCS: 76818; Z7500; G0463

== ENCOUNTER 2016-08-27 07:50 | Outpatient (CLI) | payer MEDICAID ==
[~2016-08-27] VITALS: Ht 160 cm; Wt 113.0 kg
[2016-08-27 08:07] VITALS: BP 128/61; PULSE 88; Ht 160 cm; Wt 113.0 kg
--- NOTE | 2016-08-27 10:15 | RADRPT ---
PROCEDURE: OB ultrasound for biophysical profile CLINICAL INDICATION: Biophysical profile. . Oligohydramnios TECHNIQUE: Multiple sonographic images of the pelvis were obtained. Transabdominal views are obta ined. COMPARISON: 08/25/2016 FINDINGS: Single intrauterine gestation. Presentation: Cephalic. Placenta: Anterior. No evidence of placental abruption. No evidence of placenta previa. breathing movement = 2/2 tone = 2/2 motion = 2/2 ROSETTE = 2/2 ROSETTE = 10.1 cm; previously 10.0 cm heart rate: 135 beats per minute IMPRESSION: Single intrauterine gestation. Biophysical profile 10/06 RPTAT: AADD .Eyad Dye MD, MD Date Time Electronically viewed and signed by .Eyad Dye MD, on 08/27/2016 10:15 .B/
== END 2016-08-27 11:05 | disposition home or self-care (01) ==
LOC: OBT 07:50 → L-D 07:51 → OBT 11:05
PROVIDERS: ATTEND Obstetrics & Gynecology
DX: O41.03X0 Oligohydramnios, third trimester, not applicable or unspecified (principal); Z3A.36 36 weeks gestation of pregnancy
CPT/HCPCS: 76818; Z7500; G0463

== ENCOUNTER 2016-08-29 07:34 | Outpatient (CLI) | payer MEDICAID ==
[~2016-08-29] VITALS: Ht 160 cm; Wt 112.9 kg
[2016-08-29 07:46] VITALS: BP 122/71; PULSE 86; RESP 18; Ht 160 cm; Wt 112.9 kg
--- NOTE | 2016-08-29 08:27 | RADRPT ---
PROCEDURE: OB ultrasound for biophysical profile CLINICAL INDICATION: Poor tone. TECHNIQUE: Multiple sonographic images of the pelvis were obtained. Transabdominal views of the g ravid uterus are available for review. The images were reviewed on a PACS workstation. COMPARISON: Biophysical profile dated 08/27/2016 FINDINGS: breathing movement = 2/2 tone = 2/2 motion = 2/2 ROSETTE = 2/2 ROSETTE = 8.1 cm Single live intrauterine with cardiac activity of 147 bpm. position is cephal ic. The placenta is posterior. IMPRESSION: 1. Single live intrauterine gestation. 2. Biophysical profile = 10/06. 3. ROSETTE = 8.1 cm. RPTAT: HH .Deann Castellanos MD, Date Time Electronically viewed and signed by .Deann Castellanos MD, on 08/29/2016 08:26 .G/
[2016-08-29 08:39] LABS: BASOPHILS % 0.3 % (0.0-2.0); EOSINOPHILS # 0.1 10^3/ul (0.0-0.5); EOSINOPHILS % 0.6 % (0.0-7.0); HEMATOCRIT 38.7 % (37.0-47.0); HEMOGLOBIN 13.1 g/dl (12.0-16.0); LYMPHOCYTES # 1.9 10^3/ul (0.8-2.9); LYMPHOCYTES % 16.2 % (15.0-51.0); MEAN CORPUSCULAR HEMOGLOBIN 30.8 pg (29.0-33.0); MEAN CORPUSCULAR HGB CONC 33.9 g/dl (32.0-37.0); MEAN CORPUSCULAR VOLUME 90.8 fl (82.0-101.0); MEAN PLATELET VOLUME 10.5 fl (7.4-10.4); MONOCYTE # 0.7 10^3/ul (0.3-0.9); MONOCYTES % 5.7 % (0.0-11.0); NEUTROPHIL # 8.8 10^3/ul (1.6-7.5); NEUTROPHILS % 76.7 % (39.0-77.0); PLATELET COUNT 196 10^3/UL (140-415); RED BLOOD COUNT 4.26 10^6/ul (4.20-5.40); RED CELL DISTRIBUTION WIDTH 12.5 % (11.5-14.5); WHITE BLOOD COUNT 11.5 10^3/ul (4.8-10.8)
[2016-08-29 08:43] LABS: ADD UMIC YES; UR ASCORBIC ACID NEGATIVE (NEGATIVE); UR BACTERIA FEW /HPF (NONE SEEN); UR BILIRUBIN (Dip) NEGATIVE (NEGATIVE); UR BLOOD (Dip) NEGATIVE (NEGATIVE); UR CLARITY CLEAR (CLEAR); UR COLOR YELLOW (YELLOW); UR GLUCOSE (Dip) NEGATIVE (NEGATIVE); UR KETONES (Dip) NEGATIVE (NEGATIVE); UR LEUKOCYTE ESTERASE (Dip) 3+ Leu/ul (NEGATIVE); UR NITRITE (Dip) NEGATIVE (NEGATIVE); UR RBC 1 /HPF (0-5); UR SPECIFIC GRAVITY (Dip) 1.008 (1.003-1.030); UR SQUAMOUS EPITHELIAL CELL FEW /HPF (FEW); UR TOTAL PROTEIN (Dip) NEGATIVE (NEGATIVE); UR UROBILINOGEN (Dip) NEGATIVE (NEGATIVE)
[2016-08-29 08:53] LABS: ALBUMIN/GLOBULIN RATIO 1.53; BILIRUBIN,INDIRECT 0.2 mg/dl (0-1.1); BILIRUBIN,TOTAL 0.2 mg/dl (0.2-1.3); CREATININE 0.62 mg/dl (0.44-1.00); POTASSIUM 3.8 mmol/L (3.5-5.1); TOTAL PROTEIN 6.6 g/dl (6.1-8.1); URIC ACID 5.5 mg/dl (3.1-7.9)
[2016-08-29 09:09] LABS: INR 0.85; PROTIME 11.6 Sec (12.2-14.2); PT RATIO 0.9
--- NOTE | 2016-08-29 09:38 | HP ---
Date/Time of Note Date/Time of Note DATE: 08/29/16 TIME: 09:35 OB - History Hx of Present Free Text/Dictation @36+wks GA with Low ROSETTE suspected Gestational HTN and Variables : 2 Para: 1 Care: Good Care Ultrasounds: Normal mid trimester US Obstetrical Complications: None, Gestational Hypertension, Growth Restriction Past Family/Social History * Past Medical, Surgical, Family and Obstetric Histories reviewed from chart. OB Admission Exam Vital Signs Vital Signs Vital Signs Date Time Temp Pulse Resp B/P Pulse Ox O2 Delivery O2 Flow Rate FiO2 08/29/16 07:46 97.9 86 18 122/71 Room Air Physical Exam Abdomen: WNL Extremities: Normal Reflexes: Normal Membranes: Intact Heart Rate: 140's Accelerations: Accelerations Present Decelerations: Variable Decelerations Varibility: Moderate Contractions on Admission: >10 Minutes Apart Last 72 hours Lab Results CBC & BMP 08/29/16 08:25 Liver Function Test 08/29/16 08:25 Alanine Aminotransferase (ALT/SGPT) 19 Albumin 4.0 Alkaline Phosphatase 107 Aspartate Amino Transf (AST/SGOT) 21 Direct Bilirubin 0.00 Total Protein 6.6 OB Assessment/Plan Reason for admission: observation Plan: Expectant Management Other plan: perinatalogy consult 24 hr urine for Protein MAYCOL RICARDO M.D. Aug 29, 2016 09:37
[2016-08-29] MEDS ORDERED: LACTATED RINGER'S 1,000 ML IV SCH (09:41)
[2016-08-29] MEDS ORDERED: LACTATED RINGER'S 1,000 ML IV ONE (10:30)
--- NOTE | 2016-08-29 12:38 | RADRPT ---
PROCEDURE: US OB. CLINICAL INDICATION: Low ROSETTE TECHNIQUE: Transabdominal views of the pelvis are available for review. COMPARISON: Obstetrical ultrasound from 08/27/2016 FINDINGS: There is a single intrauterine gestation in a vertex position. The heart rate is present at 134 bpm. The placenta is anterior. There is no evidence of placenta previa or a placental abruption. The ROSETTE measures 9.2 cm. RPTAT: AA IMPRESSION: Normal ROSETTE of 9.2 cm, compared with an ROSETTE of 10.1 cm previously. Physician Juliana Date Time Electronically viewed and signed by Physician Juliana on 08/29/2016 12:37 RA/
== END 2016-08-29 12:42 | disposition home or self-care (01) ==
LOC: OBT 07:34 → L-D 07:34 → OBT 09:30 → L-D 09:30 → UNDOADMIN 09:49 → OBT 12:42
PROVIDERS: ATTEND Obstetrics & Gynecology
DX: O41.8X30 Other specified disorders of amniotic fluid and membranes, third trimester, not applicable or unspecified (principal); O36.8130 Decreased fetal movements, third trimester, not applicable or unspecified; Z3A.36 36 weeks gestation of pregnancy
CPT/HCPCS: 76816; 76818; 80053; 81001; 84560; 85025; 85384; 85610; 85730; J7120; Z7500; G0463

== ENCOUNTER 2016-08-31 07:50 | Inpatient (IN) | payer MEDICAID ==
[~2016-08-31] VITALS: Ht 160 cm; Wt 113.5 kg
[2016-08-31 08:11] VITALS: Ht 160 cm; Wt 113.5 kg
[2016-08-31 08:12] VITALS: BP 131/83; PULSE 85; RESP 18
--- NOTE | 2016-08-31 08:43 | RADRPT ---
PROCEDURE: US biophysical profile. CLINICAL INDICATION: Decreased motion. Hypertension. TECHNIQUE: Multiple sonographic images of the uterus were obtained. The images were revi ewed on a PACS workstation. COMPARISON: 08/29/2016. FINDINGS: There is a single live intrauterine gestation. heart rate is 143 beats per minute. The position is cephalic. The placenta is anterior grade 1 with no abruption or previa. The ROSETTE is 6.2 cm. (Normal = 5-20 cm.) Breathing Movement: 2 Gross Body Movement: 2 Tone: 2 Qualitative Amniotic Fluid Volume: 2 TOTAL: 8 IMPRESSION: 1. The biophysical score is 8/8. RPTAT: QQ .Pramod Kowalski MD, MD Date Time Electronically viewed and signed by .Pramod Kowalski MD, on 08/31/2016 08:43 .R/
--- NOTE | 2016-08-31 09:21 | TRIAGE ---
OB Triage Datetime Report Generated by CPN: 08/31/2016 09:21 Datetime: 08/31/2016 08:04 Stage of : OB Triage Assessment Type: Triage Maternal Assessment Level of Consciousness: Fully Conscious DTR's/Clonus: DTRs 2+; No Clonus Headache: Denies Blurred Vision: No Respiratory Effort: Unlabored; Regular Rhythm; Equal Expansion Breath Sounds, Left: Clear and Equal Breath Sounds, Right: Clear and Equal Nausea/Vomiting: Denies RUQ Epigastric Pain: Denies Facial Edema: None Temperature Route: Axillary Fall Risk Assessment History of Falling: (0) No Secondary Diagnosis: (0) No Ambulatory Aid: (0) Bedrest/Nurse Assist IV Therapy: (0) No Gait: (0) Normal/Bedrest/Immobile Mental Status: (0) Oriented to Own Ability Fall Score: 0 Fall Risk Score Definition: No Risk: No action required Labor Evaluation Frequency: 0 Monitor Mode: External Resting Tone [place]: Relaxed Heart Rate FHR Baseline Rate: 130 Monitor Mode: External US Variability: Moderate 6-25 bpm Accelerations: 10X10 Decelerations: None Category: Category I Pain Assessment Pain Scale: 1 Pain Presence: Constant Pain Type: Ache Pain Location: Head Pain Goal: 3 Pain Relief Measures: Comfort Measures Datetime: 08/31/2016 08:02 Time of Arrival: 08/31/2016 07:48 EGA: 36.3 Arrived By: Ambulatory Arrived From: Home Chief Complaint: FOLLOW UP NST/BPP Movement: Decreased Contractions: Denies/Absent Rupture of Membranes: Denies Vaginal Discharge: Denies Recent Sexual Intercouse: Denies Abdominal Trauma: Not Applicable Patient Complaints: Headache Time Provider Notified: 08/31/2016 09:10 Provider Notified: DAYAMI Initial Plan: NST/BPP Datetime: 08/31/2016 08:00 Monitor Mode: External Monitor Mode: External US Datetime: 08/29/2016 11:00 Stage of : Antepartum Maternal Assessment Level of Consciousness: Fully Conscious Labor Evaluation Frequency: NONE Monitor Mode: External Resting Tone [place]: Relaxed Heart Rate FHR Baseline Rate: 135 Monitor Mode: External US Variability: Moderate 6-25 bpm Accelerations: 15X15 Decelerations: None Pain Assessment Pain Scale: 0 Pain Goal: 3 Vaginal Exam Membrane Status: Intact Vaginal Bleeding: None Datetime: 08/29/2016 10:00 Stage of : Antepartum Maternal Assessment Level of Consciousness: Fully Conscious Labor Evaluation Frequency: NONE Monitor Mode: External Resting Tone [place]: Relaxed Heart Rate FHR Baseline Rate: 135 Monitor Mode: External US Variability: Moderate 6-25 bpm Accelerations: 15X15 Decelerations: None Pain Assessment Pain Scale: 0 Pain Goal: 3 Vaginal Exam Membrane Status: Intact Vaginal Bleeding: None Datetime: 08/29/2016 07:46 Assessment Type: Admission Assessment Vaginal Bleeding: None Maternal Assessment Level of Consciousness: Fully Conscious DTR's/Clonus: DTRs 2+; No Clonus Headache: Denies Blurred Vision: No Respiratory Effort: Unlabored; Regular Rhythm; Equal Expansion Breath Sounds, Left: Clear and Equal Breath Sounds, Right: Clear and Equal Nausea/Vomiting: Denies RUQ Epigastric Pain: Denies Lower Extremities Edema: None Degree: None Upper Extremities Edema: None Degree: None Facial Edema: None Fall Risk Assessment History of Falling: (0) No Secondary Diagnosis: (0) No Ambulatory Aid: (0) Bedrest/Nurse Assist IV Therapy: (0) No Gait: (0) Normal/Bedrest/Immobile Mental Status: (0) Oriented to Own Ability Fall Score: 0 Fall Risk Score Definition: No Risk: No action required Labor Evaluation Frequency: NONE Pain Assessment Pain Scale: 0 Vaginal Exam Membrane Status: Intact Datetime: 08/29/2016 07:42 Fall Score: 0 Fall Risk Score Definition: No Risk: No action required Datetime: 08/29/2016 07:41 Time of Arrival: 08/29/2016 09:00 EGA: 36.1 Initial Plan: NST/BPP/PIH PANEL/IV HYDRATION/PO HYDRATION Datetime: 08/27/2016 08:04 Fall Score: 0 Fall Risk Score Definition: No Risk: No action required Datetime: 08/27/2016 08:03 EGA: 35.6 Datetime: 08/25/2016 10:23 EGA: 35.4 Datetime: 08/25/2016 09:30 Fall Score: 0 Fall Risk Score Definition: No Risk: No action required Datetime: 08/25/2016 09:25 Fall Score: 0 Fall Risk Score Definition: No Risk: No action required Datetime: 08/23/2016 07:14 Fall Score: 0 Fall Risk Score Definition: No Risk: No action required Datetime: 08/22/2016 20:00 Fall Score: 20 Fall Risk Score Definition: No Risk: No action required Datetime: 08/21/2016 19:44 Fall Score: 20 Fall Risk Score Definition: No Risk: No action required Datetime: 08/21/2016 08:18 Fall Score: 0 Fall Risk Score Definition: No Risk: No action required Datetime: 08/20/2016 19:24 Fall Score: 0 Fall Risk Score Definition: No Risk: No action required Datetime: 08/20/2016 07:53 Fall Score: 20 Fall Risk Score Definition: No Risk: No action required Datetime: 08/19/2016 21:43 Fall Score: 20 Fall Risk Score Definition: No Risk: No action required Datetime: 08/18/2016 20:24 Fall Score: 0 Fall Risk Score Definition: No Risk: No action required Datetime: 08/18/2016 08:41 Fall Score: 0 Fall Risk Score Definition: No Risk: No action required Datetime: 08/17/2016 19:20 Fall Score: 0 Fall Risk Score Definition: No Risk: No action required Datetime: 08/17/2016 15:00 Fall Score: 0 Fall Risk Score Definition: No Risk: No action required Datetime: 08/17/2016 07:30 Fall Score: 0 Fall Risk Score Definition: No Risk: No action required Datetime: 08/16/2016 19:30 Fall Score: 0 Fall Risk Score Definition: No Risk: No action required Datetime: 08/16/2016 17:00 Fall Score: 0 Fall Risk Score Definition: No Risk: No action required Datetime: 08/16/2016 16:59 Fall Score: 0 Fall Risk Score Definition: No Risk: No action required Datetime: 08/16/2016 10:35 Fall Score: 0 Fall Risk Score Definition: No Risk: No action required Datetime: 08/16/2016 10:32 EGA: 34.2 Datetime: 08/14/2016 00:04 Fall Score: 0 Fall Risk Score Definition: No Risk: No action required Datetime: 08/13/2016 23:43 EGA: 33.6
[2016-08-31] MEDS ORDERED: LACTATED RINGER'S 1,000 ML IV SCH (09:27)
[2016-08-31] MEDS ORDERED: CARBOPROST 250 MCG INJ IM PRN ×3 (09:30→15:00)
[2016-08-31] MEDS ORDERED: MISOPROSTOL 200 MCG TAB PR PRN ×3 (09:30→15:00)
[2016-08-31] MEDS ORDERED: CEFAZOLIN 2 GM/50 ML (PMX) 50 ML IV SCH ×2 (09:30→11:00)
[2016-08-31] MEDS ORDERED: OXYTOCIN 30 UNITS/LR 500 ML IV SCH ×2 (09:30→11:00)
[2016-08-31] MEDS ORDERED: OXYTOCIN 30 UNITS/LR 500 ML IV PRN ×3 (09:30→15:00)
[2016-08-31] MEDS ORDERED: METHYLERGONOVINE 0.2 MG INJ IM PRN ×3 (09:30→15:00)
[2016-08-31 09:44] LABS: ADD SCAN DIFF NO
[2016-08-31 10:06] LABS: INR 0.81; PROTIME 11.2 Sec (12.2-14.2); PT RATIO 0.9
[2016-08-31 10:07] LABS: PARTIAL THROMBOPLASTIN TIME 24.6 Sec (25.0-35.0)
[2016-08-31 10:29] LABS: BASOPHILS % 0.3 % (0.0-2.0); EOSINOPHILS # 0.1 10^3/ul (0.0-0.5); EOSINOPHILS % 0.5 % (0.0-7.0); HEMATOCRIT 38.5 % (37.0-47.0); HEMOGLOBIN 13.3 g/dl (12.0-16.0); LYMPHOCYTES # 1.9 10^3/ul (0.8-2.9); LYMPHOCYTES % 15.4 % (15.0-51.0); MEAN CORPUSCULAR HEMOGLOBIN 31.3 pg (29.0-33.0); MEAN CORPUSCULAR HGB CONC 34.5 g/dl (32.0-37.0); MEAN CORPUSCULAR VOLUME 90.6 fl (82.0-101.0); MEAN PLATELET VOLUME 10.8 fl (7.4-10.4); MONOCYTE # 0.8 10^3/ul (0.3-0.9); MONOCYTES % 6.2 % (0.0-11.0); NEUTROPHIL # 9.7 10^3/ul (1.6-7.5); NEUTROPHILS % 77.1 % (39.0-77.0); PLATELET COUNT 207 10^3/UL (140-415); RED BLOOD COUNT 4.25 10^6/ul (4.20-5.40); RED CELL DISTRIBUTION WIDTH 12.3 % (11.5-14.5); WHITE BLOOD COUNT 12.5 10^3/ul (4.8-10.8)
[2016-08-31] MEDS ORDERED: morphine SULFATE/PF (10 MG/10 ML) INJ ONE (10:51)
[2016-08-31] MEDS ORDERED: ONDANSETRON 4 MG INJ ONE (10:51)
[2016-08-31] MEDS ORDERED: EPHEDrine SULFATE 50 MG/5 ML SYG ONE (10:51)
[2016-08-31] MEDS ORDERED: OXYTOCIN 30 UNITS/LR 500 ML IV ONE (10:51)
[2016-08-31] MEDS ORDERED: METOCLOPRAMIDE 10 MG INJ ONE (10:51)
[2016-08-31] MEDS ORDERED: OXYTOCIN 10 UNIT INJ ONE (10:51)
[2016-08-31] MEDS ORDERED: morphine 2 MG INJ IV PRN ×2 (12:00)
[2016-08-31] MEDS ORDERED: morphine SULFATE/PF (10 MG/10 ML) INJ SPINAL ONE (12:00)
[2016-08-31] MEDS ORDERED: DIPHENHYDRAMINE 50 MG INJ IV PRN (12:00)
[2016-08-31] MEDS ORDERED: HYDROmorphONE 1 MG/ML SYG IV PRN ×2 (12:00)
[2016-08-31] MEDS ORDERED: ONDANSETRON 4 MG INJ IV PRN (12:00)
[2016-08-31] MEDS ORDERED: EPHEDrine SULFATE 50 MG/5 ML SYG IV PRN (12:00)
[2016-08-31] MEDS ORDERED: NALOXONE (0.4 MG/ML) INJ IV PRN (12:00)
--- NOTE | 2016-08-31 12:16 | OPR ---
Operative Report Planned Procedure Free Text/Dictation 26 years old female 2 para 1 EDC September 25 admitted to [facility] at 36 weeks and 3 with a history of previous C- section in early labor her is complicated with mild PIH (24 hours urine has been sent out for protein and creatinine clearance result not available), category 3 heart tracing is being prepared for repeat C- section, indication for and the complication that may arise from this surgery including but not limited to bowel and bladder injury infection hemorrhage and hematoma discussed with her she is willing to go ahead with the procedure Procedure date Aug 31, 2016 Procedure(s) Repeat in labor, PIH, category 3 heart tracing Performed by: SHERIDAN STOCK MD Assisting provider: RIO QUINTEROS MD Anesthesiologist: STEPHAN CRAWFORD MD Pre-procedure diagnosis 36 weeks and 3 days history of previous complicated with PIH category 3 heart tracing in labor Anesthesia Type: spinal Procedure Description Under satisfactory [spine] anesthesia, the patient was prepped and draped and placed in a supine position, tilted to the left. Pfannenstiel incision was made , carried through the subcutaneous tissue. Bleeders brought under control with electrocautery. Fascia incised to the length of the incision. Rectus muscles from the fascia, divided in midline. Peritoneum exposed, entered through a transverse incision. Exploration of abdomen revealed gravid uterus normal-appearing tubes and ovaries. Bladder flap was developed. Transverse incision was made in the lower segment of the uterus. Amniotic sac ruptured clear. amniotic fluid noted. Live baby boy was delivered from occiput anterior Nasal oropharyngeal suction was performed. baby handed to the team for immediate attention. placenta was delivered manually intact. Uterine cavity was cleaned with wet sponge and drainage established. Uterus closed in 2 layers using [Monocryl #1 in continuous fashion. Peritoneal cavity irrigated with warm saline. Sponge, needle and instrument count reported to be correct. Abdominal peritoneum closed with 2-0 chromic catgut [] continuously. Rectus muscle approximated with [] few interrupted 2-0 chromic catgut. Fascia closed with #1 PDS [], and skin closed with osvaldo. Estimated blood loss 600 [] mL. Urine bag contained 200 []mL of urine Post-Procedure Findings: Live Baby [boy], Apgars [8] and [9], weight [], position [occiput anterior, [] vertex presentation []cord blood obtained Complications: None Pt Condition post procedure: stable Physician Certification I, the undersigned physician, hereby certify that I have discussed the procedure described in this consent form with this patient (or the patient's legal labor relations representative), including: * The risk and benefits of the procedure; * Any adverse reactions that may reasonably be expected to occur; * Any alternative efficacious methods of treatment which may be medically viable ; * The potential problems that may occur during recuperation; * Potential for blood transfusion and associated risks/benefits; and * Any research or economic interest I may have regarding this treatment. I further certify that the patient/legally responsible person was encouraged to ask question and that all questions were answered. SHERIDAN STOCK MD Aug 31, 2016 12:12
--- NOTE | 2016-08-31 12:25 | HP ---
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 Rubella: immune RPR/VDRL: Negative GBS Status: Negative HBsAG: Negative OB Admission Exam Vital Signs Vital Signs Vital Signs Date Time Temp Pulse Resp B/P Pulse Ox O2 Delivery O2 Flow Rate FiO2 08/31/16 08:12 98.3 85 18 131/83 98 Room Air Physical Exam HEENT: WNL Lungs: Clear, Equal Abdomen: WNL Extremities: Normal Cervical Dilatation: None Station: -2 Heart Rate: 130's Accelerations: Accelerations Present Decelerations: Variable Decelerations Varibility: Moderate Contractions on Admission: 6-10 Minutes Apart Intensity: Mild Last 72 hours Lab Results CBC & BMP 08/31/16 09:25 OB Assessment/Plan Reason for admission: other (Repeat ) SHERIDAN STOCK MD Aug 31, 2016 12:25
[2016-08-31] MEDS: KETOROLAC 30 MG INJ IV PRN ×2 (13:22→21:33)
[2016-08-31 14:55] VITALS: BP 121/67; PULSE 68; RESP 20
[2016-08-31] MEDS ORDERED: ACETAMINOPHEN/CODEINE #3 TAB PO PRN (15:00)
[2016-08-31] MEDS ORDERED: LANOLIN 7 GM TUBE TOP PRN (15:00)
[2016-08-31] MEDS ORDERED: CEFAZOLIN 1 GM/50 ML (PMX) 50 ML IVPB SCH (15:00)
[2016-08-31] MEDS ORDERED: OXYCODONE/ACETAMINOPHEN (5/325) TAB PO PRN (15:00)
[2016-08-31 18:32] LABS: OPIATES Positive (NEGATIVE)
[2016-08-31] MEDS: OXYTOCIN 30 UNITS/LR 500 ML IV SCH ×2 (18:32→23:38)
[2016-08-31 18:36] LABS: BARBITURATES Negative (NEGATIVE); BENZODIAZEPINES Negative (NEGATIVE); CANNABINOIDS Negative (NEGATIVE); COCAINE Negative (NEGATIVE)
[2016-08-31 20:25] VITALS: BP 125/61; PULSE 78; RESP 20
[2016-08-31] MEDS: SENNA/DOCUSATE NA (8.6MG/50MG) TAB PO SCH (21:33)
[2016-08-31 23:29] VITALS: BP 117/70; PULSE 87; RESP 18
[2016-09-01] VITALS: BP 119/73; PULSE 73; RESP 18
[2016-09-01] MEDS: OXYTOCIN 30 UNITS/LR 500 ML IV SCH ×6 (02:48→22:48)
[2016-09-01 04:00] VITALS: BP 116/65; PULSE 74; RESP 18
[2016-09-01] MEDS: KETOROLAC 30 MG INJ IV PRN ×2 (04:14→09:27)
[2016-09-01] MEDS: LACTATED RINGER'S 1,000 ML IV SCH ×3 (05:00→20:45)
[2016-09-01 06:56] LABS: ADD SCAN DIFF NO
[2016-09-01 07:05] LABS: BASOPHILS % 0.3 % (0.0-2.0); EOSINOPHILS # 0.1 10^3/ul (0.0-0.5); EOSINOPHILS % 0.6 % (0.0-7.0); HEMATOCRIT 36.1 % (37.0-47.0); LYMPHOCYTES # 1.3 10^3/ul (0.8-2.9); LYMPHOCYTES % 10.5 % (15.0-51.0); MEAN CORPUSCULAR HEMOGLOBIN 30.5 pg (29.0-33.0); MEAN CORPUSCULAR HGB CONC 33.2 g/dl (32.0-37.0); MEAN CORPUSCULAR VOLUME 91.9 fl (82.0-101.0); MEAN PLATELET VOLUME 10.4 fl (7.4-10.4); MONOCYTE # 0.7 10^3/ul (0.3-0.9); MONOCYTES % 5.5 % (0.0-11.0); NEUTROPHIL # 9.9 10^3/ul (1.6-7.5); NEUTROPHILS % 82.7 % (39.0-77.0); PLATELET COUNT 168 10^3/UL (140-415); RED BLOOD COUNT 3.93 10^6/ul (4.20-5.40); RED CELL DISTRIBUTION WIDTH 12.5 % (11.5-14.5)
[2016-09-01 09:04] VITALS: BP 122/59; PULSE 77; RESP 20
[2016-09-01] MEDS: SENNA/DOCUSATE NA (8.6MG/50MG) TAB PO SCH ×2 (09:27→21:00)
[2016-09-01 12:23] VITALS: BP 127/59; PULSE 80; RESP 20
[2016-09-01] MEDS: IBUPROFEN 600 MG TAB PO SCH ×2 (12:51→18:42)
[2016-09-01] MEDS: ACETAMINOPHEN/CODEINE #3 TAB PO PRN ×2 (12:51→18:42)
--- NOTE | 2016-09-01 13:34 | PN ---
Date/Time of Note Date/Time of Note DATE: 09/01/16 TIME: 13:33 OB Subjective Subjective Subjective Post day 1 Afebrile vital signs are stable abdomen soft incision bowel sounds present extremities normal ambulation encouraged Laboratory Tests Test 08/31/16 17:00 09/01/16 06:21 Urine Opiates Screen Positive Urine Barbiturates Negative Urine Amphetamines Screen Negative Urine Benzodiazepines Screen Negative Urine Cocaine Screen Negative Urine Cannabinoids Negative White Blood Count 12.010^3/ul Red Blood Count 3.9310^6/ul Hemoglobin 12.0g/dl Hematocrit 36.1% Mean Corpuscular Volume 91.9fl Mean Corpuscular Hemoglobin 30.5pg Mean Corpuscular Hemoglobin Concent 33.2g/dl Red Cell Distribution Width 12.5% Platelet Count 31237^3/UL Mean Platelet Volume 10.4fl Neutrophils % 82.7% Lymphocytes % 10.5% Monocytes % 5.5% Eosinophils % 0.6% Basophils % 0.3% Nucleated Red Blood Cells % 0.0/100WBC Neutrophils # 9.910^3/ul Lymphocytes # 1.310^3/ul Monocytes # 0.710^3/ul Eosinophils # 0.110^3/ul Basophils # 0.010^3/ul Nucleated Red Blood Cells # 0.010^3/ul Current Medications Medications (Trade) Dose Ordered Sig/Jose Ramon Route PRN Reason Start Time Stop Time Status Last Admin Dose Admin Lactated Ringer's 1,000 ml @ 125 mls/hr Q8H IV 08/31/16 09:27 08/31/16 10:39 DC 08/31/16 09:41 Cefazolin Sodium/ Dextrose 50 ml @ 100 mls/hr ONCE IV 08/31/16 09:30 08/31/16 10:39 DC Oxytocin/Lactated Ringer's 500 ml @ 125 mls/hr ONCE IV 08/31/16 09:30 08/31/16 10:39 DC Oxytocin/Lactated Ringer's 500 ml @ 0 mls/hr ONCE PRN IV For Hemorrhage Management 08/31/16 09:30 08/31/16 10:40 DC Methylergonovine Maleate (Methergine) 0.2 mg ONCE PRN IM VAGINAL BLEEDING 08/31/16 09:30 08/31/16 10:40 DC Carboprost Tromethamine (Hemabate) 250 mcg ONCE PRN IM VAGINAL BLEEDING 08/31/16 09:30 08/31/16 10:40 DC Misoprostol 1000 mcg 1,000 mcg ONCE PRN TX VAGINAL BLEEDING 08/31/16 09:30 08/31/16 10:40 DC Cefazolin Sodium/ Dextrose 50 ml @ 100 mls/hr ONCE IV 08/31/16 11:00 08/31/16 14:51 DC Oxytocin/Lactated Ringer's 500 ml @ 125 mls/hr ONCE IV 08/31/16 11:00 08/31/16 14:51 DC 08/31/16 14:26 Oxytocin/Lactated Ringer's 500 ml @ 0 mls/hr ONCE PRN IV For Hemorrhage Management 08/31/16 11:00 08/31/16 14:51 DC Methylergonovine Maleate (Methergine) 0.2 mg ONCE PRN IM VAGINAL BLEEDING 08/31/16 11:00 08/31/16 14:51 DC Carboprost Tromethamine (Hemabate) 250 mcg ONCE PRN IM VAGINAL BLEEDING 08/31/16 11:00 08/31/16 14:51 DC Misoprostol (Cytotec) 1,000 mcg ONCE PRN TX VAGINAL BLEEDING 08/31/16 11:00 08/31/16 14:51 DC Ephedrine Sulfate 50 mg 50 mg STK-MED ONCE .ROUTE 08/31/16 10:51 08/31/16 10:52 DC Oxytocin/Lactated Ringer's 500 ml @ ud STK-MED ONCE IV 08/31/16 10:51 08/31/16 10:52 DC Ondansetron HCl (Zofran Inj) 4 mg STK-MED ONCE .ROUTE 08/31/16 10:51 08/31/16 10:52 DC Metoclopramide HCl (Reglan) 10 mg STK-MED ONCE .ROUTE 08/31/16 10:51 08/31/16 10:52 DC Oxytocin (Oxytocin) 10 units STK-MED ONCE .ROUTE 08/31/16 10:51 08/31/16 10:52 DC Morphine Sulfate (Duramorph) 10 mg STK-MED ONCE .ROUTE 08/31/16 10:51 08/31/16 10:52 DC Naloxone HCl (Narcan) 0.1 mg Q2M PRN IV FOR RESP RATE 8 OR LESS 08/31/16 12:00 09/01/16 11:59 DC Ketorolac Tromethamine (Toradol) 30 mg Q6H PRN IV PAIN 08/31/16 12:00 09/01/16 11:59 DC 09/01/16 09:27 Morphine Sulfate (morphine) 2 mg Q3H PRN IV PAIN LEVEL 1-5 08/31/16 12:00 09/01/16 11:59 DC Morphine Sulfate (morphine) 4 mg Q3H PRN IV PAIN LEVEL 6-10 08/31/16 12:00 09/01/16 11:59 DC Hydromorphone HCl (Dilaudid) 0.2 mg Q3H PRN IV PAIN LEVEL 1-5 08/31/16 12:00 09/01/16 11:59 DC Hydromorphone HCl (Dilaudid) 0.4 mg Q3H PRN IV PAIN LEVEL 6-10 08/31/16 12:00 09/01/16 11:59 DC 08/31/16 14:31 Diphenhydramine HCl (Benadryl) 25 mg Q6H PRN IV ITCHING 08/31/16 12:00 09/01/16 11:59 DC Ondansetron HCl (Zofran Inj) 4 mg Q6H PRN IV NAUSEA AND/OR VOMITING 08/31/16 12:00 09/01/16 11:59 DC Morphine Sulfate (Duramorph) 0.3 mg GIVEN ANESTH ONCE SPINAL 08/31/16 12:00 08/31/16 12:01 DC Ephedrine Sulfate 5 mg [id number] PRN IV BLOOD PRESSURE SUPPORT 08/31/16 12:00 08/31/16 14:51 DC Acetaminophen/ Codeine Phosphate (Tylenol No.3) 1 tab Q4H PRN PO PAIN LEVEL 4-6 08/31/16 15:00 Acetaminophen/ Codeine Phosphate (Tylenol No.3) 2 tab Q4H PRN PO PAIN LEVEL 7-10 08/31/16 15:00 09/01/16 12:51 Oxycodone/ Acetaminophen (Percocet (5/ 325)) 1 tab Q4H PRN PO PAIN LEVEL 4-6 08/31/16 15:00 Oxycodone/ Acetaminophen (Percocet (5/ 325)) 2 tab Q4H PRN PO PAIN LEVEL 7-10 08/31/16 15:00 Ibuprofen (Motrin) 600 mg Q6 PO 09/01/16 12:00 09/01/16 12:51 Simethicone (Mylicon) 160 mg Q8H PRN PO DISTENSION/GAS/BLOATING 08/31/16 15:00 09/01/16 09:27 Senna/Docusate Sodium (Senokot-S) 1 tab BID PO 08/31/16 21:00 09/01/16 09:27 Lanolin (Jlz-S-Hiwnmc) 1 applic BEDSIDE MEDICATION PRN TOP BEDSIDE FOR HUSAM TO NIPPLES 08/31/16 15:00 Diphtheria/ Tetanus/Acell Pertussis 0.5 ml 0.5 ml ONCE ONCE IM* 09/03/16 09:00 09/03/16 09:01 Oxytocin/Lactated Ringer's 500 ml @ 0 mls/hr ONCE PRN IV For Hemorrhage Management 08/31/16 15:00 Methylergonovine Maleate (Methergine) 0.2 mg ONCE PRN IM VAGINAL BLEEDING 08/31/16 15:00 Carboprost Tromethamine (Hemabate) 250 mcg ONCE PRN IM VAGINAL BLEEDING 08/31/16 15:00 Misoprostol 1000 mcg 1,000 mcg ONCE PRN TX VAGINAL BLEEDING 08/31/16 15:00 Cefazolin Sodium 50 ml @ 100 mls/hr ONCE IVPB 08/31/16 15:00 08/31/16 15:29 DC 08/31/16 18:30 Oxytocin/Lactated Ringer's 500 ml @ 125 mls/hr Q4H IV 08/31/16 14:48 08/31/16 23:38 Lactated Ringer's (Lr) 1,000 ml @ 125 mls/hr Q8H IV 09/01/16 04:45 09/01/16 05:00 SHERIDAN STOCK MD Sep 01, 2016 13:34
[2016-09-01 15:41] VITALS: BP 127/53; PULSE 85; RESP 20
[2016-09-01 19:40] VITALS: BP 118/70; PULSE 82; RESP 19
[2016-09-02] MEDS: IBUPROFEN 600 MG TAB PO SCH ×5 (00:24→23:35)
[2016-09-02] MEDS: LACTATED RINGER'S 1,000 ML IV SCH ×2 (04:45→12:45)
[2016-09-02 05:15] VITALS: BP_SYST 101; BP_SYST 98; BP_DIAS 56; BP_DIAS 68; PULSE 63; RESP 19
[2016-09-02 08:45] VITALS: BP 122/62; PULSE 81; RESP 20
[2016-09-02] MEDS: SENNA/DOCUSATE NA (8.6MG/50MG) TAB PO SCH ×2 (08:54→21:09)
[2016-09-02] MEDS: OXYCODONE/ACETAMINOPHEN (5/325) TAB PO PRN (08:54)
[2016-09-02] MEDS: ACETAMINOPHEN/CODEINE #3 TAB PO PRN (15:53)
[2016-09-02 16:53] VITALS: BP 122/66; PULSE 85; RESP 20
--- NOTE | 2016-09-02 18:41 | QN ---
Documentation Comment Day 2 post Afebrile Vital signs are stable Abdomen soft uterus firm lochia normal incision dry bowel sounds present Extremity normal Plan of a.m. discharge discussed with the patient SHERIDAN STOCK MD Sep 02, 2016 18:41
[2016-09-02 20:00] VITALS: BP 114/69; PULSE 89; RESP 19
[2016-09-03 03:50] VITALS: BP 119/57; PULSE 73; RESP 17
[2016-09-03] MEDS: IBUPROFEN 600 MG TAB PO SCH (05:10)
[2016-09-03 08:00] VITALS: BP 129/66
[2016-09-03] MEDS ORDERED: DIPHTH/TET/ACEL PERTUSS (ADULT) 0.5 ML VIAL IM* ONE (09:00)
[2016-09-03] MEDS: SENNA/DOCUSATE NA (8.6MG/50MG) TAB PO SCH (09:00)
[2016-09-03] MEDS: OXYCODONE/ACETAMINOPHEN (5/325) TAB PO PRN (09:01)
[2016-09-03] MEDS ORDERED: VITAMIN A & D 5 GM OINT PACKET TOP ONE (09:41)
--- NOTE | 2016-09-03 11:10 | DS ---
Date/Time of Note Date/Time of Note DATE: 09/03/16 TIME: 11:08 Discharge Summary Admission/Discharge Info Admit Date/Time Aug 31, 2016 at 09:10 Discharge Date/Time September 03, 2016 at 1105 Discharge Diagnosis Post repeat date 3 Patient Condition: Good Procedures Repeat Hospital Course Patient had a smooth postoperative course had normal bowel movement on the second postop day the day of this incision inspected found free of inflammation and infection she was discharged home with a prescription of analgesics an appointment to the office in 4 days Home Meds Reported Medications Ferrous Sulfate (Iron) 134 Mg Tablet, 134 MG PO DAILY, TAB 08/13/16 Multivit/Min/Fol Ac/Iron/Pren* ( S*) 1 Tab Tab, 1 TAB PO DAILY, TAB 05/23/16 Follow-up Plan Appointment clinic in 4 days Primary Care Provider Care Physician No Primary Time spent on discharge: < 30 minutes SHERIDAN STOCK MD Sep 03, 2016 11:10
== END 2016-09-03 12:45 | disposition home or self-care (01) | DRG 766 ==
LOC: OBT 07:50 → L-D 07:50 → OBT 09:10 → L-D 10:40 → PP1 14:28
PROVIDERS: ADMIT Obstetrics & Gynecology; ATTEND Obstetrics & Gynecology
PROC: 10D00Z1 Extraction of Products of Conception, Low, Open Approach (ICD-10-PCS; principal; 2016-08-31 10:45)
DX: O16.4 Unspecified maternal hypertension, complicating childbirth (principal); O34.219 Maternal care for unspecified type scar from previous cesarean delivery; O76 Abnormality in fetal heart rate and rhythm complicating labor and delivery; Z3A.36 36 weeks gestation of pregnancy; Z37.0 Single live birth
CPT/HCPCS: 76818; 80307; 85025; 85610; 85730; 86592; 86704; 86850; 86900; 86901; 87340; 88307; 90715; 99464; G0463; J0690; J1170; J1885; J2274; J2405; J2590; J2765; J7120

== ENCOUNTER 2016-09-14 13:28 | Emergency (ER) | payer MEDICAID ==
[~2016-09-14] VITALS: Wt 80.0 kg
[2016-09-14] MEDS ORDERED: BACI28.34 TOP (13:57)
[2016-09-14 14:13] VITALS: BP 128/76; PULSE 76; RESP 20; TEMP 98.2
--- NOTE | 2016-09-14 14:15 | ERD ---
ER Documentation Chief Complaint Date/Time DATE: 09/14/16 TIME: 14:13 Chief Complaint C SECTION WOUND HAS SMALL OPENING. NO DRAINAGE. NO FEVER OR REDNESS HPI 26-year-old female status post comes in with an opening to her wound. She is 2 para 1 and had a delivery on September 04. She reports that osvaldo are removed by her doctor and she was advised that small opening was nothing to worry about. She has not had any pain, drainage. Denies fevers or chills. ROS All systems reviewed and are negative except as per history of present illness. Medications Home Meds Active Scripts Bacitracin* (Bacitracin Zinc Oint*) 28.35 Gm Oint, 1 APPLIC TOP BID, #1 TUB APPLI TO Prov:ELY CRAWFORD PA-C 09/14/16 Reported Medications Ferrous Sulfate (Iron) 134 Mg Tablet, 134 MG PO DAILY, TAB 08/13/16 Multivit/Min/Fol Ac/Iron/Pren* ( S*) 1 Tab Tab, 1 TAB PO DAILY, TAB 05/23/16 Allergies Allergies: Coded Allergies: No Known Allergy (Verified , 05/23/16) PMhx/Soc History of Surgery: Yes ( x 1) Anesthesia Reaction: No Hx Neurological Disorder: No Hx Respiratory Disorders: No Hx Cardiac Disorders: No Hx Psychiatric Problems: No Hx Miscellaneous Medical Probl: Yes (PRE GRAVID MORBID OBESITY) Hx Alcohol Use: No Hx Substance Use: No Hx Tobacco Use: No Smoking Status: Never smoker Physical Exam Vitals Vital Signs Date Time Temp Pulse Resp B/P Pulse Ox O2 Delivery O2 Flow Rate FiO2 09/14/16 13:32 98.2 83 20 137/81 98 Physical Exam General: Well-developed, well-nourished. The patient appears in no acute distress. HEENT: Head is normocephalic, atraumatic. No scleral icterus. Neck: Supple. Nontender. Lungs: Clear to auscultation. Normal air movement. Heart: Regular rate and rhythm. S1 and S2 are normal. No murmurs, gallops, or rubs. Abdomen: Soft, incision is intact, there is small openings to each lateral aspect, there is no dehiscence of the wound. It is a superficial opening of the epidermal layer, they are each approximately 1.5 cm, wound is clean, dry and intact, there is no erythema nondistended. Bowel sounds are normoactive. Extremities: No clubbing or cyanosis. Normal pulses. Moving extremities x 4. No weakness. Neurologic: Alert and oriented 3. No focal deficits. Skin: Normal turgor. No rash or lesions. Procedures/MDM 26-year-old female status post comes in with a small opening. This was a small opening that was noted by the surgeon, it is superficial. I do not see any evidence of seroma, abscess or cellulitis or dehiscence. Wound shows no evidence of infection, foreign body, neurologic injury, vascular injury, open joint or tendon laceration. Patient appropriate for outpatient follow up. Departure Diagnosis: Primary Impression: Encounter for postoperative wound check Condition: Good Patient Instructions: Post Op Wound Check, ELY Suazo PA-C Sep 14, 2016 14:14
== END 2016-09-14 14:13 | disposition home or self-care (01) ==
LOC: FTE 13:28
DX: O90.0 Disruption of cesarean delivery wound (principal); E66.01 Morbid (severe) obesity due to excess calories
CPT/HCPCS: 99283

== ENCOUNTER 2016-09-17 11:10 | Emergency (ER) | payer MEDICAID ==
[~2016-09-17] VITALS: Wt 77.3 kg
[~2016-09-17 11:10] MED LIST changes: +BACI28.34 TOP
--- NOTE | 2016-09-17 13:55 | ERD ---
ER Documentation Chief Complaint Date/Time DATE: 09/17/16 TIME: 13:51 Chief Complaint csect wound opening up HPI 26-year-old female history obesity, had a recent about 2 weeks ago comes emergency room with a wound that she states is slightly opening. She states that she picked up her child yesterday, her leaned over and felt a small opening. She states that the small area in the right side is slightly painful, she states that there is some yellow drainage. She denies fevers or chills, abdominal pain. She denies nausea vomiting. She was seen here 2 days ago, there was a small opening that was dry, she has been applying bacitracin. ROS All systems reviewed and are negative except as per history of present illness. Medications Home Meds Active Scripts Bacitracin* (Bacitracin Zinc Oint*) 28.35 Gm Oint, 1 APPLIC TOP BID, #1 TUB APPLI TO Prov:ELY CRWAFORD PA-C 09/14/16 Reported Medications Ferrous Sulfate (Iron) 134 Mg Tablet, 134 MG PO DAILY, TAB 08/13/16 Multivit/Min/Fol Ac/Iron/Pren* ( S*) 1 Tab Tab, 1 TAB PO DAILY, TAB 05/23/16 Allergies Allergies: Coded Allergies: No Known Allergy (Verified , 05/23/16) PMhx/Soc History of Surgery: Yes ( x 1) Anesthesia Reaction: No Hx Neurological Disorder: No Hx Respiratory Disorders: No Hx Cardiac Disorders: No Hx Psychiatric Problems: No Hx Miscellaneous Medical Probl: Yes (PRE GRAVID MORBID OBESITY) Hx Alcohol Use: No Hx Substance Use: No Hx Tobacco Use: No Smoking Status: Never smoker Physical Exam Vitals Vital Signs Date Time Temp Pulse Resp B/P Pulse Ox O2 Delivery O2 Flow Rate FiO2 09/17/16 11:19 99.1 96 20 135/76 98 Physical Exam General: Well-developed, well-nourished. The patient appears in no acute distress. HEENT: Head is normocephalic, atraumatic. No scleral icterus. Neck: Supple. Nontender. Lungs: Clear to auscultation. Normal air movement. Heart: Regular rate and rhythm. S1 and S2 are normal. No murmurs, gallops, or rubs. Abdomen: Soft, scar is clean dry and intact, there is no erythema, warmth, there is a 2 cm very superficial opening on the right side, there is some yellow drainage. The left side has a closing superficial opening is approximately 1.5 cm, no drainage. Extremities: No clubbing or cyanosis. Normal pulses. Moving extremities x 4. No weakness. Neurologic: Alert and oriented 3. No focal deficits. Skin: Normal turgor. No rash or lesions. Procedures/MDM ER course: Spoke with her OB, Dr Rodas, patient will be states that it is advised to irrigate the wound, with hydrogen peroxide. To apply Steri-Strips to the wound. He states that he will be available in his office, that is adjacent to this hospital tomorrow, and that she is to see him then. Medical decision making: This 26-year-old female presents with a C-sections opening, there is a small seroma. Suspicion for infection is low, there is no erythema or warmth. There is a very small opening, though is likely exacerbated from her picking up the child leaning over yesterday. There is no dehiscence of the wound, patient has appropriate follow-up with her [employer] tomorrow Departure Diagnosis: Primary Impression: Encounter for wound re-check Condition: Good Referrals: SHERIDAN STOCK MD Additional Instructions: Regrese a estas instalaciones MAANA para repetirle el examen.Regrese antes si matta condicin se empeora. ELY CRAWFORD PA-C Sep 17, 2016 13:55
== END 2016-09-17 13:00 | disposition home or self-care (01) ==
LOC: FTE 11:10
DX: Z48.01 Encounter for change or removal of surgical wound dressing (principal); E66.01 Morbid (severe) obesity due to excess calories
CPT/HCPCS: 99281

== ENCOUNTER 2017-11-25 21:05 | Emergency (ER) | END 2017-11-26 02:44 | disposition home or self-care (01) ==

== ENCOUNTER 2018-09-17 20:13 | Emergency (ER) | payer MEDICAID ==
[~2018-09-17] VITALS: Ht 160 cm; Wt 110.9 kg
[~2018-09-17 20:13] MED LIST changes: +ACET325T33 PO; -BACI28.34 TOP; -FERR134T PO; +IBUP-1542 PO; +IBUP-1982 PO; -PRENAT PO; +SULF1TAB31 PO
[2018-09-17 20:19] VITALS: BP 146/82; PULSE 81; RESP 16; Ht 160 cm; Wt 110.9 kg
[2018-09-17] MEDS ORDERED: KETOROLAC 60 MG INJ IM STA (21:36)
== END 2018-09-17 23:10 | disposition home or self-care (01) ==
LOC: FTE 20:13
DX: S49.92XA Unspecified injury of left shoulder and upper arm, initial encounter (principal); X58.XXXA Exposure to other specified factors, initial encounter; Y92.9 Unspecified place or not applicable
CPT/HCPCS: 73030; 81025; J1885; 96372